=== PATIENT | male | born 1950 | race Caucasian/White ===

== ENCOUNTER 2019-08-13 09:56 | Outpatient (CLI) | payer MEDICARE, SELFPAY ==
--- NOTE | 2019-08-20 12:10 | WPDHOLTEREM ---
Holter/Event Monitor Holter/Event Monitor Date of procedure: 08/13/19 Procedure Type: 48 hour holter monitor Indications: PAF Conclusion: 1. 48 hour holter monitor on 08/13/19. 2. Underlying rhythm is atrial fibrillation. HR range 34-164 bpm; average HR 90 bpm. 3. No orther supraventricular arrhythmias. 4. There are 6 premature ventricular complexes. No ventricular tachycardia. 5. The longest pause is 2.4 seconds at 00:43. 6. No symptoms available for correlation.
== END 2019-08-13 09:57 | disposition home or self-care (01) ==
PROVIDERS: PCP Family Medicine; Visit Provider Internal Medicine Cardiovascular Disease
DX: I48.0 Paroxysmal atrial fibrillation (principal)
CPT/HCPCS: 93225; 93226

== ENCOUNTER 2019-09-25 12:58 | Outpatient (CLI) | payer MEDICARE, SELFPAY ==
--- NOTE | 2019-09-25 13:17 | ECHO_ITS ---
Patient Info Name: Marlo Bettencourt Age: 69 years : 1950 Gender: Male Ht: 73 in Wt: 255 lbs BSA: 2.48 m2 HR: 84 bpm BP: 129 / 75 mmHg Heart Rhythm: Atrial Fibrillation Technical Quality: Good Exam Date: 09/25/2019 1:27 PM Exam Location: [facility] Patient Status: Outpatient Admit Date: 09/25/2019 Staff Ordering Physician: Ho Thompson DO Resident Assistant Cna: Juve Christensen RDCS, RT Attending Provider: Ho Thompson DO Referring Physician: Jay VAZ; Exam Type: CA echo dop color flow w con Study Info Indications I48.1 - Persistent atrial fibrillation Complete two-dimensional, color flow and Doppler transthoracic echocardiogram is performed with contrast to opacify the left ventricle and to improve the deliniation of the left ventricle endocardial borders. Summary 1. Left ventricular chamber dimension is mildly enlarged. 2. Definity contrast administered improved wall motion interpretation. 3. Left ventricular systolic function is normal, estimated at 60-65%. 4. There is mildly increased left ventricular wall thickness. 5. The left ventricular diastolic function is normal. 6. E/e' 7 is not elevated. 7. Atrial fibrillation. 8. Left atrial chamber dimension is moderately enlarged. 9. Right atrial chamber dimension is moderately enlarged. 10. No pulmonary hypertension, estimated pulmonary arterial systolic pressure is 26 mmHg. Left Ventricle E/e' 7 is not elevated. Definity contrast administered improved wall motion interpretation. Atrial fibrillation. Left ventricular chamber dimension is mildly enlarged. Left ventricular systolic function is normal, estimated at 60-65%. There is mildly increased left ventricular wall thickness. The left ventricular diastolic function is normal. Right Ventricle Right ventricular chamber dimension is normal. Right ventricular systolic function is normal. Left Atria Left atrial chamber dimension is moderately enlarged. Right Atria Right atrial chamber dimension is moderately enlarged. Aortic Valve The aortic valve is trileaflet. There is no aortic valve stenosis. There is no aortic valve regurgitation. Pulmonic Valve There is no pulmonic regurgitation. Mitral Valve There is no mitral valve stenosis. There is no mitral valve regurgitation. Tricuspid Valve There is no tricuspid valve regurgitation. No pulmonary hypertension, estimated pulmonary arterial systolic pressure is 26 mmHg. Pericardium/Pleural There is no pericardial effusion. Inferior Vena Cava Normal inferior vena cava with >50% collapse upon inspiration consistent with normal right atrial pressure, 5 mmHg. Aorta The aortic root size at the sinus of Valsalva is normal. Left Ventricular Outflow Tract Name Value Normal LVOT 2D LVOT Diameter 2.26 cm LVOT Doppler LVOT Peak Velocity 94.05 cm/s LVOT Peak Gradient 4 mmHg LVOT Mean Gradient 2 mmHg LVOT VTI 16.49 cm LVOT VTI/AV VTI Ratio 0.68 LVOT Stroke Volume 66.20 ml
== END 2019-09-25 12:59 | disposition home or self-care (01) ==
LOC: CHSIMG 13:00
PROVIDERS: PCP Family Medicine; Visit Provider Internal Medicine Cardiovascular Disease
DX: I48.0 Paroxysmal atrial fibrillation (principal)
CPT/HCPCS: C8929

== ENCOUNTER 2019-09-29 09:11 | Inpatient (IN) | payer MEDICARE, SELFPAY ==
[2019-09-29] VITALS (14 sets, daily range): BP systolic 121–145; BP diastolic 83–90; PULSE 61–92; RESP 14–20; TEMP 36.2–36.6; O2SAT 97–100
--- NOTE | 2019-09-29 09:44 | ADMGEN ---
This patient, Marlo Bettencourt, was admitted to IMU Room [id number]. Patient/family oriented to hospital policies and general routines including ID bracelet, bed and alarms, visiting hours, pain management, procedures, bathroom and other care routines, personal items, smoking policy, room service/diet, and visiting hours. Valuables list has been completed. Information on how to activate the Rapid Response Team has been discussed. Patient/Family are encouraged to report perceived risks to care and to ask questions if they do not understand what they are told or what they should do.
--- NOTE | 2019-09-29 10:28 | ECG_ITS ---
Measurements Intervals [place] Rate: 69 P: CA: 0 QRS: 25 QRSD: 113 T: 57 QT: 389 QTc: 419 Interpretive Statements ATRIAL FIBRILLATION INTRAVENTRICULAR CONDUCTION DELAY ABNORMAL ECG Electronically Signed On 09-29-2019 13:02:27 CDT by Ho Thompson D.O.
[2019-09-29] MEDS: SOTALOL HCL 80 MG TABLET PO ×2 (11:20→19:52)
--- NOTE | 2019-09-29 12:15 | PM.IMHP ---
H&P: HPI History of Present Illness Chief complaint: A FIB Narrative: Marlo Bettencourt is a 69 year old male 69 yr old man presents for direct admission for Sotalol loading for atrial fibrillation. He has a history of PAF, dyslipidemia, hypertension, DANAE on CPAP, obesity. Reports he can walk 1 mile without any problems. He feels occasionally palpitations but does not bother him. Denies chest pain, sob, orthopnea, PND, edema. CARDIOVASCULAR PROCEDURES ELECTROPHYSIOLOGY: 09/25/19 Echo: . Left ventricular chamber dimension is mildly enlarged. Left ventricular systolic function is normal, estimated at 60-65%.There is mildly increased left ventricular wall thickness.The left ventricular diastolic function is normal.E/e' 7 is not elevated.Atrial fibrillation.Left atrial chamber dimension is moderately enlarged.Right atrial chamber dimension is moderately enlarged.No pulmonary hypertension, estimated pulmonary arterial systolic pressure is 26 mmHg. 08/13/19 Holter: Atrial fibrillation, HR range 34-164 bpm; average HR 90 bpm; 6 PAC's; longest pause 2.4 seconds at 00:43. EVR (30 day event monitor: SInus rhythm, HR range 50-140 bpm; average 72 bpm; 1% PAC's, <1% PVC's.) - 11/17/2018 EKG (Sinus rhythm) - 03/07/2016 Review of Systems Review of Systems: All systems reviewed & are unremarkable except as noted in HPI and below Constitutional: Constitutional: Reports as per HPI Cardiovascular: Cardiovascular: Reports as per HPI, Denies chest pain, Denies leg edema and Denies lightheadedness Respiratory: Respiratory: Reports as per HPI and Denies dyspnea Gastrointestinal: Gastrointestinal: Reports as per HPI and Denies abdominal pain Genitourinary: Genitourinary: Reports as per HPI Musculoskeletal: Musculoskeletal: Reports as per HPI Neurologic: Reports as per HPI, Denies Abnormal speech present and Denies confusion [facility] Past Medical History Medical History (Updated 07/03/19 @ 09:49 by Ho Thompson DO) Afib Arthritis FEET AND KNEES Dyslipidemia HTN (hypertension) Hypercholesterolemia Obesity DANAE on CPAP Surgical History Surgical History (Updated 06/23/19 @ 10:27 by Anita Morelos CMA) History of knee replacement procedure of left knee Family History Family History (Updated 09/29/19 @ 09:43 by Eleazar Ruiz RN) Mother Hypertension Alzheimer disease Father Hypertension Alzheimer disease Other Cerebrovascular accident Family history of arthritis Family history of lung cancer Social History Social History (Updated 09/29/19 @ 09:43 by Eleazar Ruiz RN) Smoking status: Never smoker Smoking end date: 03/19/11 Alcohol intake: current Drinks per week: 3 Alcohol use details: social drinker Substance use: never Living arrangements: with family Occupation/Education: retired Gender identity (if verbalized by the patient): Male Sexual Orientation (if Verbalized by the Patient): Straight or Heterosexual Spiritual care concerns: No Agree to blood products: Yes Meds Home Medications and Allergies Home Medications Medication Instructions Recorded Confirmed Type atorvastatin 20 mg PO HS 03/27/19 09/29/19 History fluticasone propionate [Flonase 1 spray INTRANASAL DAILY PRN 03/27/19 09/29/19 History Allergy Relief] hydrochlorothiazide 12.5 mg PO QAM 03/27/19 09/29/19 History metoprolol tartrate 50 mg tablet 50 mg PO Q12H #60 tablet 08/04/19 09/29/19 Rx apixaban 5 mg tablet 5 mg PO BID #60 tablet 08/20/19 09/29/19 Rx Allergies Allergy/AdvReac Type Severity Reaction Status Date / Time No Known Allergies Allergy Verified 09/03/19 11:00 Vital Signs Vital Signs - 24 hr 09/29/19 09:58 09/29/19 10:00 09/29/19 11:20 Temperature 97.2 F L Pulse Rate 78 70 66 Respiratory Rate 16 Blood Pressure 121/83 Pulse Oximetry 100 Exam Const: General: comfortable and no acute distress Neck: Neck: no JVD Carotids: no bruits Resp: Auscultation: clear
[2019-09-29 12:25] LABS: Hematocrit 45.5 % (42.0-52.0); Hemoglobin 14.9 g/dL (14.0-18.0); Mean Corpuscular HGB Conc 32.7 g/dl (32-36); Mean Corpuscular Hemoglobin 30.2 pg (26-34); Mean Corpuscular Volume 92.3 fl (80-100); Mean Platelet Volume 9.4 fl (7.4-10.4); Platelet Count Result 193 k/mm3 (150-375); Red Blood Count 4.93 M/mm3 (4.6-6.20); Red Cell Distribution Width 13.2 % (11.5-14.5); White Blood Count 8.7 K/mm3 (4.5-10.0)
[2019-09-29 12:41] LABS: Alanine Aminotransferase 24 U/L (4-50); Albumin Level 4.7 g/dL (3.5-5.1); Alkaline Phosphatase 76 U/L (38-126); Aspartate Amino Transferase 24 U/L (17-59); Bilirubin,Total 0.5 mg/dL (0.2-1.3); Blood Urea Nitrogen 22 mg/dL (9-20); Calcium 8.9 mg/dL (8.4-10.2); Carbon Dioxide 25 mmol/L (22-30); Chloride 107 mmol/L (98-107); Estimated Glomerular Filt Rate > 60; Glucose 95 mg/dL (75-110); Magnesium 2.2 mg/dL (1.6-2.3); Potassium 4.1 mmol/L (3.4-5.0); Sodium 140 mmol/L (137-145)
[2019-09-29 13:58] LABS: Thyroid Stimulating Hormone Reflex 0.305 uIU/mL (0.465-4.68)
[2019-09-29 16:09] LABS: Free T4 Free Thyroxine Reflex 1.06 ng/dL (0.78-2.19)
[2019-09-29] MEDS: APIXABAN 5 MG TABLET PO (16:38)
[2019-09-29 17:00] LABS: Total Triiodothyronine (T3) 1.13 NG/ML (0.97-1.69)
[2019-09-29] MEDS: ATORVASTATIN 20 MG TABLET PO (19:53)
[2019-09-30] VITALS (18 sets, daily range): BP systolic 111–134; BP diastolic 61–99; PULSE 55–96; RESP 18–20; TEMP 36.6–36.8; O2SAT 96–100; BMI 38.7
--- NOTE | 2019-09-30 07:00 | ECG_ITS ---
Measurements Intervals [place] Rate: 66 P: [place]: 0 QRS: 28 QRSD: 108 T: 66 QT: 416 QTc: 436 Interpretive Statements ATRIAL FIBRILLATION ABNORMAL ECG Electronically Signed On 09-30-2019 9:21:50 CDT by Ho Thompson D.O.
[2019-09-30] MEDS: APIXABAN 5 MG TABLET PO ×2 (07:45→17:43)
[2019-09-30] MEDS: hydroCHLOROthiazide 12.5 MG CAPSULE PO (07:45)
[2019-09-30] MEDS: SOTALOL HCL 80 MG TABLET PO ×2 (07:45→20:22)
--- NOTE | 2019-09-30 08:07 | PM.PNCARD ---
Progress Note: A&P Assessment and Plan (1) DANAE on CPAP: Code(s): G47.33 - Obstructive sleep apnea (adult) (pediatric); Z99.89 - Dependence on other enabling machines and devices Status: Acute (2) PAF (paroxysmal atrial fibrillation): Code(s): I48.0 - Paroxysmal atrial fibrillation Status: Acute Assessment and Plan: Continue Sotalol loading 80 mg BID. Check EKG to check QT interval. If he is still in atrial fib tomorrow, plan for PEARL/DC cardioversion. (3) HTN (hypertension): Code(s): I10 - Essential (primary) hypertension Status: Acute Assessment and Plan: Stable. (4) Hypercholesterolemia: Code(s): E78.00 - Pure hypercholesterolemia, unspecified Status: Acute Assessment and Plan: Check lipid panel in AM. (5) Obesity: Code(s): E66.9 - Obesity, unspecified Status: Acute Subjective Date/time seen: 09/30/19 08:07 Denies chest pain, sob, palpitations. Exam Const: General: comfortable and no acute distress Neck: Neck: no JVD Carotids: no bruits Resp: Auscultation: clear to auscultation bilaterally, no crackles, no rales, no rhonchi and no wheezes Cardio: Rate: regular rate Rhythm: abnormal rhythm Heart sounds: no murmurs GI: Inspection: non-distended Neuro: Speech: normal speech Extrem: Right lower extremity: no edema Left lower extremity: no edema Objective Data Vital Signs Vital Signs: Vital Signs - 24 hr 09/29/19 09:58 09/29/19 10:00 09/29/19 11:20 Temperature 97.2 F L Pulse Rate 78 70 66 Respiratory Rate 16 Blood Pressure 121/83 Pulse Oximetry 100 09/29/19 12:00 09/29/19 14:00 09/29/19 15:44 Temperature 97.1 F L Pulse Rate 65 74 92 Respiratory Rate 16 16 Blood Pressure 130/87 Pulse Oximetry 100 100 09/29/19 16:00 09/29/19 18:00 09/29/19 19:50 Temperature 97.1 F L 97.8 F Pulse Rate 70 70 80 Respiratory Rate 14 20 Blood Pressure 139/90 145/90 H Pulse Oximetry 100 97 09/29/19 19:52 09/29/19 20:00 09/29/19 22:00 Temperature Pulse Rate 74 83 62 Respiratory Rate 20 Blood Pressure Pulse Oximetry 97 09/29/19 22:18 09/29/19 23:38 09/30/19 00:00 Temperature 97.8 F Pulse Rate 64 73 70 Respiratory Rate 20 20 Blood Pressure 116/76 Pulse Oximetry 97 97 96 09/30/19 02:00 09/30/19 04:00 09/30/19 05:50 Temperature 97.8 F Pulse Rate 68 66 68 Respiratory Rate 20 Blood Pressure 111/61 Pulse Oximetry 99 09/30/19 07:40 09/30/19 07:45 Temperature 98.3 F Pulse Rate 70 83 Respiratory Rate 20 Blood Pressure 117/94 H Pulse Oximetry 98 Intake/Output Intake/Output: Intake & Output 09/27/19 09/28/19 09/29/19 09/30/19 23:59 23:59 23:59 23:59 Intake Total 1290 300 Output Total 200 Balance 1290 100 Meds/Results Medications: Active Medications Generic Name Dose Route Start Last Admin Trade Name Freq PRN Reason Stop Dose Admin Apixaban 5 mg 09/29/19 17:00 09/30/19 07:45 Eliquis PO 5 mg BID FABIOLA Administration Atorvastatin Calcium 20 mg 09/29/19 21:00 09/29/19 19:53 Lipitor PO 20 mg HS FABIOLA Administration Fluticasone Propionate 1 spray 09/29/19 10:27 Flonase 0.05% Nasal [place] NASAL DAILY PRN Congestion Hydrochlorothiazide 12.5 mg 09/30/19 09:00 09/30/19 07:45 Hydrochlorothiazide PO 12.5 mg QAM FABIOLA Administration Sotalol HCl 80 mg 09/29/19 10:30 09/30/19 07:45 Betapace PO 80 mg Q12HR FABIOLA Administration Labs Labs: Laboratory Results - last 24 hr 09/29/19 09/29/19 09/29/19 12:11 12:11 12:11 WBC 8.7 RBC 4.93 Hgb 14.9 Hct 45.5 MCV 92.3 MCH 30.2 MCHC 32.7 RDW 13.2 Plt Count 193 MPV 9.4 Sodium 140 Potassium 4.1 Chloride 107 Carbon Dioxide 25 BUN 22 H Creatinine 0.80 Estim Creat Clear Calc Not Reportable Estimated GFR > 60 Glucose 95 Calcium 8.9 Magnesium 2.2 Total Bilirubin 0.
[2019-09-30] MEDS: ATORVASTATIN 20 MG TABLET PO (20:22)
--- NOTE | 2019-09-30 23:20 | ECG_ITS ---
Measurements Intervals [place] Rate: 80 P: [place]: 0 QRS: 33 QRSD: 106 T: 52 QT: 412 QTc: 477 Interpretive Statements ATRIAL FIBRILLATION LOW QRS VOLTAGE IN PRECORDIAL LEADS ABNORMAL ECG Electronically Signed On 10-01-2019 6:45:31 CDT by Ho Thompson D.O.
[2019-10-01] VITALS (14 sets, daily range): BP systolic 105–152; BP diastolic 77–106; PULSE 49–78; RESP 14–19; TEMP 36.3–36.7; O2SAT 95–100
--- NOTE | 2019-10-01 | ECHO_ITS ---
Patient Info Name: Marlo Bettencourt Age: 69 years : 1950 Gender: Male Ht: 73 in Wt: 225 lbs BSA: 2.31 m2 HR: 96 bpm BP: 125 / 95 mmHg Technical Quality: Good Exam Date: 10/01/2019 10:15 AM Exam Location: [facility] Exam Room: [facility] Patient Status: Inpatient Admit Date: 09/29/2019 Staff Ordering Physician: Ho Thompson DO Section Hand: Lynn Jose RDCS Attending Provider: Ho Thompson DO Referring Physician: Jay VAZ; Exam Type: CA echo transesophageal Study Info Indications - afib pre cardioversion Complete two-dimensional, color flow and Doppler transesophageal study is performed. Procedure Details Risks/benefits/alternative treatment discussed with patient and he gave informed consent. Cetacaine spray given x 1. PEARL probe advanced and he swallowed probe without incident. Multiple images obtain. Agitated saline given x 1. PEARL probe withdrawn and no bleed noted on PEARL probe tip. He tolerated procedure well. No complications. Summary 1. Left ventricular chamber dimension is normal. 2. There is mildly increased left ventricular wall thickness. 3. Left ventricular systolic function is normal with an ejection fraction at 60-65%. 4. The left ventricular diastolic function is indeterminate. 5. Spontaneous contrast noted in left atrium. 6. Left atrial chamber dimension is moderately enlarged. 7. Right atrial chamber dimension is mildly enlarged. 8. Small interatrial shunt by color doppler noted from left atrium to right atrium suggestive of small atrial septal defect. 9. Suspected atrial septal defect visualized by 2D, color flow and agitated saline imaging. 10. There is mild mitral valve regurgitation. Left Ventricle Left ventricular systolic function is normal with an ejection fraction at 60-65%. Left ventricular chamber dimension is normal. There is mildly increased left ventricular wall thickness. The left ventricular diastolic function is indeterminate. Right Ventricle Right ventricular chamber dimension is normal. Right ventricular systolic function is normal. Left Atria Spontaneous contrast noted in left atrium. Left atrial chamber dimension is moderately enlarged. Right Atria Right atrial chamber dimension is mildly enlarged. Atrial Septum Small interatrial shunt by color doppler noted from left atrium to right atrium suggestive of small atrial septal defect. Suspected atrial septal defect visualized by 2D, color flow and agitated saline imaging. Atrial Appendage There is no thrombus visualized in the left atrial appendage. Aortic Valve The aortic valve is trileaflet. There is no aortic valve stenosis. There is no aortic valve regurgitation. Pulmonic Valve There is no pulmonic regurgitation. Mitral Valve There is no mitral valve stenosis. There is mild mitral valve regurgitation. Tricuspid Valve There is no tricuspid valve regurgitation. Pericardium/Pleural There is no pericardial effusion. Inferior Vena Cava Not well visualized inferior vena cava. Aorta The aortic root size at the sinus of Valsalva is normal. Report Signatures
--- NOTE | 2019-10-01 07:56 | PM.PNCARD ---
Progress Note: A&P Assessment and Plan (1) DANAE on CPAP: Code(s): G47.33 - Obstructive sleep apnea (adult) (pediatric); Z99.89 - Dependence on other enabling machines and devices Status: Acute (2) PAF (paroxysmal atrial fibrillation): Code(s): I48.0 - Paroxysmal atrial fibrillation Status: Acute Assessment and Plan: Continue Sotalol loading 80 mg BID. Check EKG to check QT interval. Keep NPO for PEARL/DC cardioversion this morning. (3) HTN (hypertension): Code(s): I10 - Essential (primary) hypertension Status: Acute Assessment and Plan: Stable. (4) Hypercholesterolemia: Code(s): E78.00 - Pure hypercholesterolemia, unspecified Status: Acute Assessment and Plan: Check lipid panel in AM. (5) Obesity: Code(s): E66.9 - Obesity, unspecified Status: Acute Subjective Date/time seen: 10/01/19 07:56 No complaints. Discussed PEARL/Cardioversion with patient and he is agreeable for procedure. Exam Const: General: comfortable and no acute distress Neck: Neck: no JVD Carotids: no bruits Resp: Auscultation: clear to auscultation bilaterally, no crackles, no rales, no rhonchi and no wheezes Cardio: Rate: regular rate Rhythm: abnormal rhythm Heart sounds: no murmurs GI: Inspection: non-distended Neuro: Speech: normal speech Extrem: Right lower extremity: no edema Left lower extremity: no edema Objective Data Vital Signs Vital Signs: Vital Signs - 24 hr 09/30/19 08:00 09/30/19 10:00 09/30/19 11:31 Temperature 98.2 F Pulse Rate 85 96 55 L Respiratory Rate 20 20 Blood Pressure 134/93 H Pulse Oximetry 98 100 09/30/19 14:00 09/30/19 15:56 09/30/19 16:00 Temperature 97.9 F Pulse Rate 88 72 72 Respiratory Rate 20 20 Blood Pressure 123/99 H Pulse Oximetry 100 99 09/30/19 18:00 09/30/19 19:48 09/30/19 20:00 Temperature 98.1 F Pulse Rate 94 64 71 Respiratory Rate 18 18 Blood Pressure 120/70 Pulse Oximetry 98 98 09/30/19 20:22 09/30/19 22:00 09/30/19 23:19 Temperature 98.0 F Pulse Rate 76 86 68 Respiratory Rate 20 Blood Pressure 133/91 H Pulse Oximetry 97 10/01/19 02:00 10/01/19 03:44 10/01/19 04:00 Temperature 98.0 F Pulse Rate 66 66 78 Respiratory Rate 18 18 Blood Pressure 152/82 H Pulse Oximetry 98 99 10/01/19 05:43 Temperature Pulse Rate 68 Respiratory Rate Blood Pressure Pulse Oximetry Intake/Output Intake/Output: Intake & Output 09/28/19 09/29/19 09/30/19 10/01/19 23:59 23:59 23:59 23:59 Intake Total 1290 1420 300 Output Total 200 850 Balance 1290 1220 -550 Meds/Results Medications: Active Medications Generic Name Dose Route Start Last Admin Trade Name Freq PRN Reason Stop Dose Admin Apixaban 5 mg 09/29/19 17:00 09/30/19 17:43 Eliquis PO 5 mg BID FABIOLA Administration Atorvastatin Calcium 20 mg 09/29/19 21:00 09/30/19 20:22 Lipitor PO 20 mg HS FABIOLA Administration Fentanyl Citrate 100 mcg 09/30/19 12:26 Sublimaze IV PUSH ONCE PRN Cardioversion/PEARL Fluticasone Propionate 1 spray 09/29/19 10:27 Flonase 0.05% Nasal [place] NASAL DAILY PRN Congestion Hydrochlorothiazide 12.5 mg 09/30/19 09:00 09/30/19 07:45 Hydrochlorothiazide PO 12.5 mg QAM FABIOLA Administration Sodium Chloride 1,000 mls @ 30 mls/hr 09/30/19 12:30 Normal Saline Iv IV CONT .Q24H FABIOLA Midazolam HCl 2 mg 10/01/19 09:00 Versed IV PUSH 10/01/19 09:16 Q5M PRN Cardioversion/PEARL Sotalol HCl 80 mg 09/29/19 10:30 09/30/19 20:22 Betapace PO 80 mg Q12HR FABIOLA Administration
[2019-10-01 08:07] LABS: Cholesterol 110 mg/dL (0-200); HDL Direct 30 mg/dL; Triglycerides 88 mg/dL (<150)
[2019-10-01 08:18] LABS: LDL Cholesterol Direct 61 mg/dL
[2019-10-01] MEDS: hydroCHLOROthiazide 12.5 MG CAPSULE PO (09:41)
[2019-10-01] MEDS: APIXABAN 5 MG TABLET PO (09:41)
[2019-10-01] MEDS: SOTALOL HCL 80 MG TABLET PO (09:41)
--- NOTE | 2019-10-01 10:50 | ECG_ITS ---
Measurements Intervals [place] Rate: 47 P: 51 [place]: 204 QRS: 28 QRSD: 105 T: 48 QT: 458 QTc: 408 Interpretive Statements SINUS BRADYCARDIA BORDERLINE AV CONDUCTION DELAY DELAYED PRECORDIAL R/S TRANSITION ABNORMAL ECG Electronically Signed On 10-01-2019 14:32:00 CDT by Ho Thompson D.O.
--- NOTE | 2019-10-01 11:58 | PC.NURSE ---
PATIENT LEFT FLOOR TO ATTEND [facility] PROCEDURE AT 0943 ON 10/01/2019
--- NOTE | 2019-10-01 11:59 | PC.NURSE ---
PATIENT RETURNED FROM [facility] AT THIS TIME. V/S ARE STABLE WITH PATIENT IN SINUS FRANCIA WITH A RATE OF 54 BPM. NO C/O PAIN OR DISCOMFORT AT THIS TIME. WILL CONTINUE TO MONITOR
--- NOTE | 2019-10-01 12:24 | P.PCNCVR_ITS ---
Cardioversion Cardioversion Date of procedure: 10/01/19 Pre-op diagnosis: Atrial fibrillation Post-op diagnosis: same Indications: Atrial fibrillation Description of procedure: Risks/benefits/ alternative treatment discussed with patient and he is agreeable for procedure. HR 70's bpm in atrial fibrillation, BP 130/80 mmHg. After PEARL done that showed no left atrial appendage thrombus, DC cardioversion proceeded. He had defibrillator pads to upper mid anterior wall and left lower anterior wall. Cardioversion with 200 J synchronized biphasic energy was successful. He tolerated procedure well. No complications. HR 45- 50's bpm and BP 120/70 mmHg. Sedation: Sedation with Fentanyl 50 mcg and Versed 4 mg IV. Conclusion: 1. Successful DC cardioversion from atrial fibrillation to Sinus rhythm.
--- NOTE | 2019-10-01 13:05 | PM.DS ---
DS: Admitting Diagnosis Admitting Diagnosis Admitting Diagnosis: Paroxysmal atrial fibrillation DS: Summary Time Spent with Patient Time attestation: 69 yr old man with PAF and hypertension and DANAE directly admitted for sotalol loading. On 3rd day he was still in atrial fib. PEARL/Cardioversion performed that restored sinus rhythm. He will be discharged on Sotalol 80 mg BID, Eliquis 5 mg BID, HCTZ 12.5 mg daily and Atorvaststatin 20 mg daily. His HR is 50-55 bpm post cardioversion. Dispo: home. Activity: As tolerated. F/U with me in 1-2 weeks. Total time spent providing and/or coordinating discharge services: DS: Data Data Completed and Pending Labs on day of discharge: Labs from last 24 hours 10/01/19 07:35 Triglycerides 88 Cholesterol 110 LDL Cholesterol Direct 61 HDL Direct 30 Discharge Plan Discharge Discharging Clinician: Ho Thompson Patient Disposition: Home, Self-Care Activity: as tolerated Diet: regular Patient Instructions: Antibiotic Form, Apixaban (By mouth) Stand Alone Forms: General Discharge Information Follow-up/Referrals: Ho Thompson DO [Physician] - 1 Week Discharge Medications: New sotalol 80 mg Tablet 80 mg PO Q12HR Qty: 0 RF: 5 Continued atorvastatin 20 mg tablet 20 mg PO HS RF: 0 fluticasone propionate [Flonase Allergy Relief] 50 mcg/actuation spray,suspension 1 spray INTRANASAL DAILY PRN (Reason: Congestion) RF: 0 hydrochlorothiazide 12.5 mg tablet 12.5 mg PO QAM RF: 0 Eliquis 5 mg tablet 5 mg PO BID Qty: 60 RF: 5 Discontinued metoprolol tartrate 50 mg tablet 50 mg PO Q12H Qty: 60 RF: 5 Date of admission: 09/29/19 09:11 Primary Care Provider: Alfred Clark Admitting Provider: Ho Thompson Attending physician on admission: Ho Thompson
== END 2019-10-01 14:40 | disposition home or self-care (01) | DRG 310 ==
PROVIDERS: Admitting Provider Internal Medicine Cardiovascular Disease; PCP Family Medicine; Visit Provider Internal Medicine Cardiovascular Disease
PROC: 5A2204Z Restoration of Cardiac Rhythm, Single (ICD-10-PCS; CPT 93312; principal; 2019-10-01 10:00)
PROC: 5A2204Z Restoration of Cardiac Rhythm, Single (ICD-10-PCS; 2019-10-01 10:00)
DX: I48.0 Paroxysmal atrial fibrillation (principal); Z51.81 Encounter for therapeutic drug level monitoring; G47.33 Obstructive sleep apnea (adult) (pediatric); I10 Essential (primary) hypertension; E78.5 Hyperlipidemia, unspecified; E66.9 Obesity, unspecified; Z68.38 Body mass index [BMI] 38.0-38.9, adult; M17.0 Bilateral primary osteoarthritis of knee; M19.072 Primary osteoarthritis, left ankle and foot; M19.071 Primary osteoarthritis, right ankle and foot; Z96.652 Presence of left artificial knee joint
CPT/HCPCS: 36415; 80053; 80061; 83735; 84439; 84443; 84480; 85027; 92960; 93005; 93312; 93320; 93325; A9270; J2250; J3010; J7040

== ENCOUNTER 2021-10-10 09:52 | Outpatient (CLI) | payer MEDICARE, SELFPAY ==
--- NOTE | ~2021-10-10 | XR_ITS ---
EXAMINATION: XR chest 2V 10/10/2021 10:25 INDICATION: Chest mass. Localized swelling. PROCEDURE: 2 view chest COMPARISON: No prior studies for comparison. FINDINGS: The lungs are clear. The cardiomediastinal silhouette is within normal limits. There are no pleural effusions. There is no pneumothorax suspected. Mild thoracic spondylosis. IMPRESSION: 1: NO ACUTE CARDIOPULMONARY DISEASE. Reviewed, dictated and finalized at location A.
--- NOTE | ~2021-10-10 | XR_ITS ---
EXAMINATION: XR sternum min 2V INDICATION: Localized mass and swelling at the xiphoid TECHNIQUE: Three views of the sternum are obtained. COMPARISON: None available FINDINGS: No definite mass of the sternum is identified. Bone alignment is normal. There is no fractu re. The soft tissues appear unremarkable. IMPRESSION: 1. No definite mass of the sternum identified. If there is high clinical concern for mass, consider f urther evaluation with CT. Reviewed, dictated and finalized at location B. IMPRESSION: 1. No definite mass of the sternum identified. If there is high clinical concer n for mass, consider further evaluation with CT.
== END 2021-10-10 09:53 | disposition home or self-care (01) ==
LOC: CHSIMG 09:55
PROVIDERS: PCP Family Medicine; Visit Provider Family Medicine
DX: R22.2 Localized swelling, mass and lump, trunk (principal)
CPT/HCPCS: 71046; 71120

== ENCOUNTER 2021-10-14 08:52 | Outpatient (CLI) | payer MEDICARE, SELFPAY ==
[2021-10-14 09:10] LABS: Estimated Glomerular Filt Rate > 60
== END 2021-10-14 08:53 | disposition home or self-care (01) ==
LOC: CHSLAB 08:55
PROVIDERS: PCP Family Medicine; Visit Provider Family Medicine
DX: Z01.89 Encounter for other specified special examinations (principal)
CPT/HCPCS: 99199

== ENCOUNTER 2021-10-17 08:45 | Outpatient (CLI) | payer MEDICARE, SELFPAY ==
--- NOTE | ~2021-10-17 | CT_ITS ---
EXAMINATION:CT diagnostic chest w con DATE: 10/17/2021 09:30 INDICATION: Lump in the area of the xiphoid process of the sternum. TECHNIQUE: Computed tomography (CT) of the chest was performed with 75 mL Omnipaque 350 intravenous c ontrast. Automated exposure control and iterative reconstruction technique were employed. The dose-le ngth product (DLP) was 591.80 mGy-cm. COMPARISON: Chest 2 views 10/10/2021 FINDINGS: There is mild emphysema. There is mild atelectasis bilaterally. No pleural effusion. There is left atrial enlargement of the heart. There are coronary artery calcifications. No pericardial eff usion. There is a 9 mm cyst in the liver. There is moderate thoracic spondylosis. The inferior tip of the xiphoid process of the sternum is directed anteriorly, which is a normal variant. IMPRESSION: 1. Normal variant of the xiphoid process of the sternum correlating with the patient's palpable area of concern. Reviewed, dictated and finalized at location A. IMPRESSION: 1. Normal variant of the xiphoid process of the sternum correlating with the pa tient's palpable area of concern.
== END 2021-10-17 08:46 | disposition home or self-care (01) ==
LOC: CHSIMG 08:46
PROVIDERS: PCP Family Medicine; Visit Provider Family Medicine
DX: R22.2 Localized swelling, mass and lump, trunk (principal)
CPT/HCPCS: 71260; Q9967

== ENCOUNTER 2021-10-19 09:22 | Outpatient (CLI) | payer MEDICARE, SELFPAY | END 2021-10-19 09:23 | disposition home or self-care (01) | LOC: CHSCARD 09:25 | PROVIDERS: PCP Family Medicine; Visit Provider Family Medicine | DX: J43.9 Emphysema, unspecified (principal) | CPT/HCPCS: 94060; 94726; 94729 ==

== ENCOUNTER 2021-12-09 08:53 | Outpatient (CLI) | payer MEDICARE, SELFPAY ==
[2021-12-09 09:07] LABS: Basophils Absolute Auto 0.09 K/mm3 (0.00-0.10); Basophils Percent Auto 1.5 % (0.0-1.0); Eosinophils Percent Auto 3.3 % (1.0-6.0); Hematocrit 40.1 % (37.0-46.0); Hemoglobin 13.4 g/dL (12.4-15.3); Immature Granulocyte Absolute 0.02 K/mm3 (0.00-0.00); Immature Granulocyte Percent A 0.3 % (0.0-0.0); Lymphocytes Absolute Auto 1.54 K/mm3 (1.10-4.50); Lymphocytes Percent Auto 25.7 % (18.0-42.0); Mean Corpuscular HGB Conc 33.4 g/dL (32.0-36.0); Mean Corpuscular Hemoglobin 30.2 pg (27.0-31.0); Mean Corpuscular Volume 90.3 fL (78.0-102.0); Mean Platelet Volume 8.9 fl (8.7-11.0); Monocytes Absolute Auto 0.59 K/mm3 (0.10-0.90); Monocytes Percent Auto 9.8 % (2.0-11.0); Neutrophils Absolute Auto 3.6 K/mm3 (1.7-7.2); Neutrophils Percent Auto 59.4 % (50.0-70.0); Platelet Count Result 195 K/mm3 (150-420); Red Blood Count 4.44 M/mm3 (4.70-6.10); Red Cell Distribution Width 12.8 % (11.6-14.4)
[2021-12-09 09:16] LABS: Creatinine Urine 89.28 mg/dL (40-278); MALB Creatinine Ratio 14.5 mg/g (0-30); Microalbumin Urine Random < 13.0 mg/L
[2021-12-09 09:52] LABS: Alanine Aminotransferase 24 U/L (16-63); Alkaline Phosphatase 69 U/L (46-116); Anion Gap 7 mmol/L (8-16); Aspartate Amino Transferase 18 U/L (15-37); Bilirubin,Total 0.5 mg/dL (0.00-1.00); Blood Urea Nitrogen 13 mg/dL (7-18); Calcium 8.6 mg/dL (8.5-10.1); Carbon Dioxide 29 mmol/L (21-32); Chloride 102 mmol/L (98-108); Cholesterol 108 mg/dL (0-200); Estimated Glomerular Filt Rate > 60; Glucose 97 mg/dL (70-99); HDL Direct 41 mg/dL (40-60); LDL Cholesterol Calculated 55 mg/dL (<130); Osmolality Calculated 286 mOsm/kg (285-295); Potassium 3.9 mmol/L (3.5-5.1); Sodium 138 mmol/L (136-145); Thyroid Stimulating Hormone 2.59 uIU/mL (0.36-3.74); Total Protein 6.6 g/dL (6.4-8.2); Triglycerides 59 mg/dL (0-150)
== END 2021-12-09 08:54 | disposition home or self-care (01) ==
LOC: CHSLAB 08:55
PROVIDERS: PCP Family Medicine; Visit Provider Family Medicine
DX: E78.2 Mixed hyperlipidemia (principal); I10 Essential (primary) hypertension
CPT/HCPCS: 36415; 80053; 80061; 82043; 84443; 85025

== ENCOUNTER 2022-05-22 09:54 | Outpatient (CLI) | payer MEDICARE, SELFPAY ==
--- NOTE | ~2022-05-22 | XR_ITS ---
XR_CERV2-3V_CR DATE: 05/22/2022 10:53 INDICATION: Paresthesia. Pain radiating to both arms for 3 weeks. TECHNIQUE: AP, open-mouth, lateral and swimmer views COMPARISON: None FINDINGS: C1 and C2 are normally aligned and the odontoid process is intact. There is multilevel degenerative disc disease, severe at C5-C6, moderately severe at C6-7 and mild at the remaining cervical interspaces. No fracture or dislocation or locked facet or prevertebral soft tissue swelling. There is uncovertebral joint spurring in the mid and lower cervical spine and degenerative change at the apophyseal joints. IMPRESSION: Cervical spondylosis; no fracture or dislocation or locked facet Reviewed, dictated and finalized at Location A. Reviewed, dictated and finalized at location B. VIOR INTERVENTIONIST
== END 2022-05-22 09:55 | disposition home or self-care (01) ==
PROVIDERS: PCP Family Medicine; Visit Provider Family Medicine
DX: R20.2 Paresthesia of skin (principal); M43.02 Spondylolysis, cervical region
CPT/HCPCS: 72040

== ENCOUNTER 2022-07-05 09:28 | Outpatient (CLI) | payer MEDICARE, SELFPAY ==
--- NOTE | 2022-07-05 11:00 | NEURO_ITS ---
Impression: # Complains of upper extremity discomfort. History of neck problem. # Evolving mild Carpal Tunnel Syndrome. # Bilateral ulnar neuropathy across the elbows. # Needle/EMG exam not requested. # Clinical correlation recommended; Higher involvement cannot be ruled out. Nerve Conduction Studies Anti Sensory Summary Table Stim Site NR Peak (ms) P-T Amp (?V) Site1 Site2 Delta-P (ms) Dist (cm) Irineo (m/s) Left Median Anti Sensory (2-3nd Digit) Wrist 3.6 26.4 Wrist 2-3nd Digit 3.6 14.0 39 Wrist 3.5 19.8 Wrist 2-3nd Digit 3.6 14.0 39 Right Median Anti Sensory (2-3nd Digit) Wrist 3.5 22.1 Wrist 2-3nd Digit 3.5 14.0 40 Wrist 3.4 19.2 Wrist 2-3nd Digit 3.5 14.0 40 Left Radial Anti Sensory (Base 1st Digit) Wrist 2.0 13.4 Wrist Base 1st Digit 2.0 0.0 Right Radial Anti Sensory (Base 1st Digit) Wrist 2.3 22.5 Wrist Base 1st Digit 2.3 0.0 Left Ulnar Anti Sensory (5th Digit) Wrist 2.4 21.5 Wrist 5th Digit 2.4 14.0 58 Right Ulnar Anti Sensory (5th Digit) Wrist 2.7 13.4 Wrist 5th Digit 2.7 14.0 52 Motor Summary Table Stim Site NR Onset (ms) O-P Amp (mV) Site1 Site2 Delta-0 (ms) Dist (cm) Irineo (m/s) Left Median Motor (Abd Poll Brev) Wrist 3.4 4.6 Elbow Wrist 5.3 34.0 64 Elbow 8.7 2.3 Right Median Motor (Abd Poll Brev) Wrist 3.4 2.0 Elbow Wrist 5.3 31.0 58 Elbow 8.7 2.1 Left Ulnar Motor (Abd Dig Minimi) Wrist 2.2 5.0 A Elbow Wrist 6.2 34.0 55 A Elbow 8.4 3.5 B Elbow Wrist 4.3 28.0 65 B Elbow 6.5 5.9 Right Ulnar Motor (Abd Dig Minimi) Wrist 2.7 6.4 A Elbow Wrist 6.2 33.0 53 A Elbow 8.9 5.5 B Elbow Wrist 3.9 24.0 62 B Elbow 6.6 5.7 F Wave Studies NR F-Lat (ms) L-R F-Lat (ms) Left Median (Mrkrs) (Abd Poll Brev) 29.30 0.29 Right Median (Mrkrs) (Abd Poll Brev) 29.59 0.29 Left Ulnar (Mrkrs) (Abd Dig Min) 29.40 0.91 Right Ulnar (Mrkrs) (Abd Dig Min) 30.31 0.91 MTDD
== END 2022-07-05 09:29 | disposition home or self-care (01) ==
LOC: ANHNEURO 09:30
PROVIDERS: PCP Family Medicine; Visit Provider Family Medicine
DX: G56.03 Carpal tunnel syndrome, bilateral upper limbs (principal); G56.23 Lesion of ulnar nerve, bilateral upper limbs
CPT/HCPCS: 95911

== ENCOUNTER 2022-07-20 10:01 | Outpatient (CLI) | payer MEDICARE, SELFPAY ==
--- NOTE | ~2022-07-20 | MR_ITS ---
MRI of the cervical spine Clinical History: Ulnar neuropathy Technique: Axial T2-weighted and gradient images, and sagittal T1-weighted, T2-weighted, and STIR ally ges were acquired. Findings: There is no fracture or subluxation of the cervical spine. Vertebral bodies maintain normal height and alignment. There is advanced degenerative disc narrowing at C5-C6. There is mild to moder ate degenerative disc narrowing at C4-C5, and C6-C7. No suspicious bone marrow signal abnormality see n. At C2-C3, there is no disc bulge or herniation. No spinal canal stenosis, cord compression, or neural foraminal narrowing. At C3-C4, there is disc osteophyte complex with mild effacement of thecal sac but no tere cord compr ession. Mild facet arthropathy, left worse than right, continues to bilateral neural foraminal narrow ing. At C4-C5, disc osteophyte complex and facet arthropathy, right worse than left, contribute to mild ce ntral canal stenosis, without tere cord compression. There is bilateral neural foraminal narrowing, right worse than left. At C5-C6, disc osteophyte complex and facet arthropathy are present. There is probable minimal centra l canal stenosis without tere cord compression. There is bilateral neural foraminal narrowing, left worse than right. At C6-C7, there is disc osteophyte complex, somewhat eccentric to the right paracentral region, witho ut tere spinal canal stenosis or cord compression. There is probable bilateral neural foraminal narr owing, right worse than left. No abnormal signal seen in the spinal cord. Paravertebral soft tissues are unremarkable. Impression: Moderate degenerative spondylosis, as detailed above. Reviewed, dictated and finalized at location M. Impression: Moderate degenerative spondylosis, as detailed above.
== END 2022-07-20 10:02 | disposition home or self-care (01) ==
PROVIDERS: PCP Family Medicine; Visit Provider Family Medicine
DX: G56.20 Lesion of ulnar nerve, unspecified upper limb (principal); M43.02 Spondylolysis, cervical region
CPT/HCPCS: 72141

== ENCOUNTER 2022-09-27 15:12 | Outpatient (RCR) | payer MEDICARE, SELFPAY ==
--- NOTE | 2022-09-27 16:24 | PTOPEVAL1 ---
Assessment and note entered by Yohana Dudley, PT Evaluation Information Assessment Status Evaluation Diagnosis C6-7 disc protrusion, R UE parathesias Subjective Information Marlo Bettencourt reports he started to have numbness and tingling in the right shoulder blade and wrist for unknown reasons about 6 months ago. He states it came on suddenly and did not go away. He has a history of intermittent pain on the right side of his neck as well. He has undergone MRI and nerve conduction testing and has been diagnosed with a C6-7 disc protrusion. He notes the symptoms come and go and do not currently prevent him from performing daily activities. He does note that driving and turning his head is when the symptoms occur most frequently. He describes the symptoms as annoying. Reported Pain Level Pain Score 0: Self Report Assessment PT Clinical Summary Marlo Bettencourt presents with numbness and tingling in the right upper extremity that has been present for 6 months intermittently. He also has a history of intermittent right sided neck pain for several years. He has difficulty with driving noting turning his head causes the numbness to occur. He objectively demonstrates impaired posture, decreased cervical AROM, decreased cervical strength, and positive special tests for right cervical nerve root impingement. He will benefit from skilled PT to address these limitations. Plan of Care Interventions Electrical Stimulation,Hot Pack/Cold Pack,Manual Therapy,Neuro Re-education,Patient/Caregiver Educati,Therapeutic Activities,Therapeutic Exercise PT Services Indicated Yes Treatment Frequency and 2 times a week for 12 visits Duration These treatments will address the objective and functional deficits as defined above. The patient will be advanced safely and appropriately in order for the patient to progress towards his/her prior level of function. Additional exercises will be introduced and as well as a comprehensive home exercise program upon discharge, if needed, ?to ensure carryover of functional gains achieved in the clinic. This treatment plan has been reviewed and agreement upon by the patient.
--- NOTE | 2022-09-27 16:24 | OPREHPOC ---
Outpatient Therapy Plan of Care This is a Multidisciplinary Plan of Care that may contain components documented by all disciplines (PT, OT, and ST.) PT Problem 1 PT Problem #1 Knowledge Deficit PT Goal 1 Goal The patient will be independent in a home exercise program for cervical stabilization and postural exercises to continue after discharge from formal PT. Target Visit 12 PT Problem 2 PT Problem #2 Pain PT Goal 1 Goal The patient will report a resolution of right UE parathesias by 75%. Target Visit 12 PT Problem 3 PT Problem #3 Impaired Range of Motion PT Goal 1 Goal The patient will improved cervical lateral flexion AROM to 25 degrees and rotation AROM to 70 degrees. Target Visit 12 PT Problem 4 PT Problem #4 Impaired Functional Mobil PT Goal 1 Goal The patient will report the ability to drive without an increase in R UE parathesias or neck pain.
--- NOTE | 2022-10-31 11:45 | PTOPEVAL1 ---
Assessment and note entered by Amaury Leong Evaluation Information Assessment Status Progress Diagnosis C6-7 disc protrusion, R u.e. parathesis Subjective Information Pt. reports that he is improved by 75%. He notes that he no longer as the numbness while driving. He still notes some pain with turning the head and describes pain in the area of the right upper trap. He reports that he would like to continue skilled PT in order to further decrease pain and improve ROM. Reported Pain Level Pain Score 1: Self Report Assessment PT Clinical Summary Pt. has attended a total of 10 treatment sessions. Pt. demonstrates improvements in subjective reports of pain, strength, cervical mobility and postural awareness. Continued skilled PT is indicated in order to address remaining pain and posutral awareness to maximize pt. functional mobility and comfort. Plan of Care Interventions Electrical Stimulation,Manual Therapy,Neuro Re- education,Therapeutic Activities,Therapeutic Exercise PT Services Indicated Yes Treatment Frequency and Continue with 2 remianing sessions on pt. POC Duration focused on addressing remaining pain, ROM deficits and postural awareness. These treatments will address the objective and functional deficits as defined above. The patient will be advanced safely and appropriately in order for the patient to progress towards his/her prior level of function. Additional exercises will be introduced and as well as a comprehensive home exercise program upon discharge, if needed, ?to ensure carryover of functional gains achieved in the clinic. This treatment plan has been reviewed and agreement upon by the patient.
--- NOTE | 2022-11-07 13:10 | OPREHPOC ---
Outpatient Therapy Plan of Care This is a Multidisciplinary Plan of Care that may contain components documented by all disciplines (PT, OT, and ST.) PT Problem 1 PT Problem #1 Knowledge Deficit PT Goal 1 Goal The patient will be independent in a home exercise program for cervical stabilization and postural exercises to continue after discharge from formal PT. Target Visit 12 Progress Met PT Problem 2 PT Problem #2 Pain PT Goal 1 Goal The patient will report a resolution of right UE parathesias by 75%. Target Visit 12 Progress Met PT Problem 3 PT Problem #3 Impaired Range of Motion PT Goal 1 Goal The patient will improved cervical lateral flexion AROM to 25 degrees and rotation AROM to 70 degrees. Target Visit 12 Progress Met PT Problem 4 PT Problem #4 Impaired Functional Mobil PT Goal 1 Goal The patient will report the ability to drive without an increase in R UE parathesias or neck pain. Progress Met
--- NOTE | 2022-11-07 13:10 | PTOPDC ---
Assessment and note entered by JT File, PT Evaluation Information Assessment Status Progress Diagnosis C6-7 disc protrusion, R u.e. parathesis Subjective Information patient reports he feels Good this date. he reports he has no new pain. he reports he always has a little pain when he gets up in the mornings. he reports he is compliant with his HEP daily at home. he reports the isometrics and the towel neck exercises seem to feel the best. Reported Pain Level Pain Score 0: Self Report Assessment PT Clinical Summary mr. norton presents to skilled PT services for her 12th skilled therapy visit today. he has met all goals for skilled PT as of this date. he will DC skilled PT today and continue with HEP independent at home. Plan of Care PT Services Indicated Yes
== END 2022-11-07 10:18 | disposition home or self-care (01) ==
LOC: CHSPT 15:12
PROVIDERS: PCP Family Medicine
DX: M47.812 Spondylosis without myelopathy or radiculopathy, cervical region (principal)
CPT/HCPCS: 97012; 97014; 97110; 97140; 97150; 97161; G0283

== ENCOUNTER 2025-01-16 08:53 | Outpatient (CLI) | payer MEDICARE, SELFPAY ==
--- OUTSIDE RECORDS SUMMARY | 2025-01-16 09:14 | XMS_ITS | Clinical Summary ---
Author Organization [facility] Address [address] [place] [address] Care Team Providers Care Delivery Clerk Name Role Phone Mahesh Og MD Unavailable Alfred Clark MD Primary Care Provider [phone] Source Comments [facility],non-owned Affiliates and Associated Physician Practices is amultiple site organization consisting of ambulatory clinics and hospital sitesin [place], [place], [place] and [place]. This disclosure is being madepursuant to the Care Everywhere program and may not contain all information available regarding this patient. Last updated 17.[facility] Allergies No known active allergies Medications * Be aware that medications may not be up to date on this document. Alwaysverify current medications with the patient. Radha Cross, (SAW PALMETTO PO) Take 750 mg by mouth once daily Active LYCOPENE PO Take 20 mg by mouth once daily Active Safflower Oil 1000 MG Take 2,000 mg by mouth once daily Active Multiple Vitamins-Mineral s (MENS MULTIVITAMIN PLUS PO) Take by mouth once daily Active lutein 10 MG tablet Take 1 (one) tablet by mouth once daily Active vitamin C (ASCORBIC ACID) 1000 MG tablet Take 1 (one) tablet by mouth once daily Active ALPHA LIPOIC ACID PO Take 1,200 mg by mouth once daily Active FOLIC ACID PO Take 1 tablet by mouth once daily Active atorvastatin (LIPITOR) 20 MG tablet Take 1 (one) tablet by mouth at bedtime 9 Active hydroCHLOROthiaz oh (MICROZIDE) 12.5 MG capsule Take 1 (one) capsule by mouth once daily 9 Active metoprolol succinate XL 24hr (TOPROL XL) 50 MG tablet Take 1 (one) tablet by mouth at bedtime 1 Active FISH OIL-KRILL OIL PO Take 1 tablet by mouth once daily Active Tart Chu 1200 MG CAPS Take 1,200 mg by mouth once daily Active Vitamin D3, cholecalciferol, 50 MCG (2000 UT) tablet Take 1 (one) tablet by mouth once daily Active Coconut Oil 1000 MG Take 2,000 mg by mouth once daily Active Resveratrol 100 MG capsule Take 100 mg by mouth once daily Active VITAMIN E COMPLEX PO Take 268 mg by mouth once daily Active Other Take 1 tablet by mouth once daily Juice plus Lopes Active Other Take 1 tablet by mouth once daily Juice Plus Fruit Blend Active Other Take 1 tablet by mouth once daily Juice Plus vegetable blend Active Acetaminophen (TYLENOL PO) Take 2 capsules by mouth once daily 8 Active celecoxib (CELEBREX) 200 MG capsuleIndicatio ns:Aftercare following right knee joint replacement surgery TAKE 1 (ONE) CAPSULE BY MOUTH 2 TIMES DAILY 60 capsule 2 Active Additional Information Patient not taking.Reported on 10/05/2022 amLODIPine (Norvasc) 10 MG tablet Take 1 (one) tablet by mouth once daily 3 Active cephalexin (Keflex) 500 MG capsule TAKE 1 CAPSULE BY MOUTH EVERY 6 HOURS 3 Active losartan (Cozaar) 50 MG tablet Take 1 (one) tablet by mouth once daily 2 Active valACYclovir (Valtrex) 1 GM tablet TAKE 2 TABLETS BY MOUTH TWICE DAILY FOR ONE DAY AT THE ONSET OF SYMPTOMS 2 Active CBD oil Take 30 mg by mouth once daily Active Active Problems Problem Noted Date Diagnosed Date History of total right knee replacement 02/17/20 21 Paroxysmal atrial fibrillation in 2018 8 HTN (hypertension), benign 07/06/2017 Hypercholesterolemia 07/06/2017 Status post left knee replacement 06/06/2017 Resolved Problems Problem Noted Date Diagnosed Date Resolved Date Primary osteoarthritis of right knee 05/19/2020 02/16/2021 Social History Tobacco Use Types Packs/Day Years Used Date Smoking Tobacco: Some Days Cigars Last attempted to quit: 2010 Smokeless Tobacco: Former Quit: 01/19/2014 Comments:cigar every once in awhile Alcohol Use Standard Drinks/Week Comments Not Currently 0 (1 standard drink = 0.6 oz pur e alcohol) Sex and Gender Information Value Date Recorded Sex Assigned at Male 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 Sex Male 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 Gender Identity Not on file Sexual Orientation Not on file Last Filed Vital Signs Vital Sign Reading Time Taken Comments Blood Pressure 126/65 01/20/2021 11:31 AM CDT Pulse 67 01/20/2021 11:31 AM CDT Temperature 36.6 C (97.9 F) 01/20/2021 11:31 AM CDT Respiratory Rate 20 01/20/2021 11:31 AM CDT Oxygen Saturation 94% 01/20/2021 11:31 AM CDT Inhaled Oxygen Concentration - - Weight 117.9 kg (260 lb) 02/28/2021 3:47 PM MUSIC TEACHER Height 185.4 cm (6' 0.99) 02/28/2021 3:47 PM CS T Body Mass Index 34.31 02/28/2021 3:47 PM MUSIC TEACHER Plan of Treatment Health Maintenance Due Date Last Done Comments COLOGUARD (AGES 45-75) - COLON CA SCREENING 1950 COLON MONITORING 1950 COLONOSCOPY - COLON CA SCREENING 1950 CT COLONOGRAPHY - COLON CA SCREENING 1950 Colorectal Cancer Screening 1950 FIT - COLON CA SCREENING 1950 FLEX SIG - COLON CA SCREENING 1950 MEDICARE AWV 12 MONTHS 1950 HEPATITIS C SCREENING 04/29/1968 DTAP/TDAP/TD VACCINES (1 - Tdap) 1969 PNEUMOCOCCAL VACCINE 50+ (1 of 2 - PCV) 1969 ZOSTER VACCINE (1 of 2) 2000 AAA SCREENING 2015 DEPRESSION SCREENING 03/19/2024 COVID-19 VACCINE (3 - season) 2024 05/18/2020, 04/15/2020 INFLUENZA VACCINE (#1) 2024 , 12/18/2018, 11/30/2017, Additional history exists Respiratory Syncytial Virus (RSV) Vaccine Pt: or over 60 yrs (1 - 1-dose 75+ series) 2025 HEPATITIS B VACCINE Aged Out No longe r eligible based on patient's age to complete this topic HIB VACCINE Aged Out No longer eligi ble based on patient's age to complete this topic HPV VACCINE Aged Out No longer eligi ble based on patient's age to complete this topic MENINGOCOCCAL (Group B) VACCINE SHARED DECISION-MAKING Aged Out No longer eligible based on patient's age to complete this topic MENINGOCOCCAL GROUPS A/C/Y/W VACCINE Aged Out No longer eligible based on patient's age to complete this topic Medical Devices Implanted Type Area Watch Assembler Device Identifier Shelf Expiration Date Model / Serial / Lot Cmnt Bone Cblt 40gm Hvisc Strl Implanted:Qty: 1 on 06/06/2017 by Mahesh Og MD at [facility] Left: Knee [employer] 01/16/2019 600-15-000 / / [id number] Tray Tib 79mm Kn Cocr I Beam Implanted:Qty: 1 on 06/06/2017 by Mahesh Og MD at [facility] Left: Knee [employer] 03/16/2027 [id number] / / [id number] Cmpnt Ptlr 31mm 1 Pg Wire Ascnt Arcm Kn Implanted:Qty: 1 on 06/06/2017 by Mahesh Og MD at [facility] Left: Knee [employer] 05/17/2022 [id number] / / [id number] Cmpnt Fem Kn Lt Cr Cmnt Prm Vngrd Intlk 67.5mm Implanted:Qty: 1 on 06/06/2017 by Mahesh Og MD at [facility] Left: Knee [employer] 05/12/2027 [id number] / / [id number] Brng [id number] Vngrd Arcm Kn Ant Stab Implanted:Qty: 1 on 06/06/2017 by Mahesh Og MD at [facility] Left: Knee [employer] 05/16/2022 [id number] / / [id number] Brng [id number] Vngrd Arcm Kn Ant Stab Implanted:Qty: 1 on 01/19/2021 by Mahesh Og MD at [facility] Right: Knee [employer] 03/21/2025 [id number] / / [id number] Cmnt Bone Djo Srg Cblt 40gm Hvisc Strl Implanted:Qty: 2 on 01/19/2021 by Mahesh Og MD at [facility] Right: Knee [employer] 04/21/2022 600-15-000 / / [id number] Tray Tib 79mm Kn Cocr I Beam Implanted:Qty: 1 on 01/19/2021 by Mahesh Og MD at [facility] Right: Knee [employer] 08/19/2030 [id number] / / [id number] Cmpnt Fem Kn Rt Cr Cmnt Prm Vngrd Intlk Implanted:Qty: 1 on 01/19/2021 by Mahesh Og MD at [facility] Right: Knee [employer] 09/18/2030 [id number] / / [id number] Cmpnt Ptlr 31mm 1 Pg Wire Ascnt Arcm Kn Implanted:Qty: 1 on 01/19/2021 by Mahesh Og MD at [facility] Right: Knee [employer] 11/19/2025 [id number] / / [id number] Insurance MEDICARE MEDICARE SUPPLEMENT PAYOR GENERIC ANTH MEDICARE MEDICARE Advance Directives * Full Code (Latest Code Status on File) Date Activated Date Inactivated Comments 01/19/2021 2:33 PM 01/20/2021 2:56 PM * Full Code Date Activated Date Inactivated Comments 06/06/2017 4:44 PM 06/09/2017 1:16 PM Care Teams Delivery Clerk Relationship Specialty Start Date End Date Alfred Clark MD [address] [place] [address] PCP - General Family Medicine 05/18/20 [place] [id number] [place] [id number] Orthopedic Surgery 02/20/17
--- OUTSIDE RECORDS SUMMARY | 2025-01-16 09:14 | XMS_ITS | Clinical Summary ---
Author Organization [facility] D Address [address] [place] [id number] Care Team Providers Care Chartered Wealth Manager Name Role Phone Alfred Clark MD Primary Care Provide r Allergies No known active allergies Medications fluticasone propionate (FLONASE) 50 mcg/actuation nasal spray Administer 1 spray into each nostril daily as needed for rhinitis Active coconut oil 1,000 mg capsule Take 2,000 mg by mouth daily Active resveratroL 100 mg capsule Take 100 mg by mouth daily Active omega 9-dxm-pff-fis h oil (Fish OiL) 100-160-1,000 mg capsule Take 1 tablet by mouth daily Active sour chu extract (Tart Chu Extract) 1,000 mg capsule Take 1,200 mg by mouth daily Active vitamin E (AQUASOL E) 1,000 unit capsule Take 268 mg by mouth daily Active losartan (COZAAR) 50 mg tablet Take 1 tablet (50 mg total) by mouth daily 12/19/19 22 Active cholecalcifer ol, vitamin D3, (VITAMIN D3 ORAL) Take by mouth Active cyanocobalami n, vitamin B-12, (VITAMIN B-12 ORAL) Take by mouth Active atorvastatin (LIPITOR) 20 mg tablet TAKE 1 TABLET BY MOUTH AT BEDTIME 90 tablet 1 01/22/20 24 Active amLODIPine (NORVASC) 10 mg tablet TAKE 1 TABLET BY MOUTH EVERY DAY 90 tablet 3 06/24/19 25 Active triamcinolone (KENALOG) 0.1 % ointmentIndic ations:Arthro pod bite, initial encounter Apply to bug bites twice daily as needed for itching 30 g 09/27/19 25 Active fluorouraciL (EFUDEX) 5 % creamIndicati ons:Actinic Keratosis Apply 1:1 mixture of 5-fluorouracil (5FU) and calcipotriene (C) two (2) times a day (BID) to treatment area(s) for four (4) days. Treatment area(s): ears. Mix one (1) fingertip unit (FTU) 5FU (brand name: Efudex) cream and one (1) FTU of C cream in the palm of your hand. Then, apply this 1:1 5FU:C mixture. Apply Vaseline (1) 30 minutes after applying 5FU:C and (2) as needed (PRN) thereafter for irritation. The rash will start around day 4 of treatment and last for 10 days. Make sure to wash your face before applying 5FU:C. You will be more sensitive to the sun for 4-6 weeks after starting 5FU:C, so apply sunblock SPF 50 or higher to treated area every day. You will use a FTU of medicine to treat each hand-sized area of skin. A FTU is the amount of medicine squeezed out of its tube from the last joint of the pointer finger to its tip. In an adult, this amount is ~0.5 g, which will is enough to treat/cover (1) an entire hand, (2) half the face, or (3) one-third of an arm. 40 g 1 09/27/19 25 Active calcipotriene (DOVONOX) 0.005 % ointmentIndic ations:Actini c keratosis Mix 1:1 with 5-fluorouracil (5FU; brand name: Efudex) and then apply twice a day (BID) to ears for four (4) days to treat actinic keratoses (AKs). This treatment will cause a rash and sun sensitivity. The rash can be soothed by Vaseline and other thick emollients. Please make sure to use sun block with sun protection factor (SPF) 50 or higher on treated skin during this treatment and for 4-6 weeks after the treatment. Side effects include: irritation, allergy. 60 g 10/01/19 25 Active metoprolol XL (TOPROL-XL) 50 mg extended release tablet TAKE 1 TABLET BY MOUTH EVERY DAY 90 tablet 3 10/31/19 25 Active hydroCHLOROth iazide (HYDRODIURIL) 25 mg tablet TAKE 1 TABLET (25 MG TOTAL) BY MOUTH DAILY. 90 tablet 3 12/27/19 25 026 Active hydroCHLOROth iazide (HYDRODIURIL) 25 mg tablet Take 1 tablet (25 mg total) by mouth daily 30 tablet 11 12/27/19 24 025 Discontinued Active Problems Problem Noted Date Diagnosed Date History of total right knee replacement 02/17/20 21 08/04/2022 S/P ablation of atrial fibrillation 01/27/2020 Persistent atrial fibrillation 11/27/2019 Overview (11/27/2019): Added automatically from request for surgery [id number] Assessment & Plan (01/01/2025 11:58 AM CDT): The patient is 5 years status post ablation for atrial fibrillation, doing well. Maintaining sinus rhythm with without antiarrhythmic drug therapy. No changes to management The patient has a [id number] score of 2. He is off anticoagulation, per personal preference. The patient will follow-up with me in 12 months for an office visit and twelve- lead ECG. Assessment & Plan (12/27/2023 1:54 PM CDT): The patient is 4 years status post ablation for atrial fibrillation, doing well. Maintaining sinus rhythm without antiarrhythmic drug therapy. No changes to management necessary The patient has a DHH2SK7-BZAm score of 2. He is off anticoagulation per personal preference. The patient will follow-up with me in 12 months for an office visit and twelve- lead ECG. Assessment & Plan (12/21/2022 2:48 PM CDT): The patient is three years status post ablation for atrial fibrillation, doing well. Maintaining sinus rhythm without antiarrhythmic therapy. No changes to medications The patient has a [id number]-YQPi score of 2. The patient is off anticoagulation, per personal preference. The patient will follow-up with me in 12 months for an office visit and twelve- lead ECG. Assessment & Plan (12/26/2021 11:40 AM CDT): Persistent atrial fibrillation, maintaining sinus rhythm since ablation 2 years ago. We will continue to monitor and follow closely, and manage new / recurrent arrhythmia expectantly. He is off anticoagulation per personal preference. Chads Vasc score is 2. If he experiences recurrence, we will reinitiate anticoagulation. The patient will follow-up with me in 12 months for an office visit and twelve- lead ECG. Assessment & Plan (11/03/2020 12:56 PM CDT): Persistent atrial fibrillation, presently 10 months post ablation. He is doing well, without recurrence. Assessment & Plan (04/29/2020 11:19 AM HAM PASSER): Persistent atrial fibrillation, presently 4 months status post ablation. He is doing well, without recurrence. We will continue to monitor and follow closely, and manage new / recurrent arrhythmia expectantly. Assessment & Plan (01/27/2020 3:06 PM HAM PASSER): Persistent atrial fibrillation, presently 6 weeks status post catheter ablation. He is maintaining sinus rhythm. I recommended that he discontinue sotalol. We will reinitiate metoprolol, which the patient was previously on for high blood pressure. We will continue to monitor and follow closely, and manage new / recurrent arrhythmia expectantly. Assessment & Plan (11/27/2019 1:45 PM CDT): The patient has persistent atrial fibrillation that has been resistant to antiarrhythmic drug therapy with sotalol. We discussed options for management, and the patient is interested in catheter ablation. We discussed the rationale for atrial fibrillation ablation, including the steps involved in ablation. I detailed the risks of the procedure, including vascular injury/hematoma, myocardial injury/perforation, stroke, myocardial infarction, pulmonary vein stenosis, thermal esophageal injury, phrenic nerve injury, and . I estimated a 70% chance of freedom from long-term atrial arrhythmia, and the patient understands that occasionally a second procedure is necessary. Because of the patient's persistent atrial fibrillation, I recommended that they undergo transesophageal echocardiography (to exclude the presence of left atrial thrombus) immediately prior to EP study and ablation. If he wishes to proceed, my office will make the appropriate arrangements. From: March, Jeannine LS, Maranda JS, Moraima H, Reji LIZY, Samuel JE, Vickie MENDY, cSar PT, Jason FORMAN, ME, Monty KT, Hany RL, Jeremy WG, Doug PJ, Melvi CM, Nya CW. 2014 AHA/ACC/HRS guideline for the management of patients with atrial fibrillation: a report of the [place] [employer]/[place] Heart Association Task Force on Practice Guidelines and the Heart Rhythm Society. J Am Cherry Cardiol 2014. 6.3. AF Catheter Ablation to Maintain Sinus Rhythm: Recommendations Class IIa AF catheter ablation is reasonable for selected patients with symptomatic persistent AF refractory or intolerant to at least 1 class I or III antiarrhythmic medication (388, [phone]). (Level of Evidence: A) Anticoagulation management encounter 11/27/2019 Assessment & Plan (11/03/2020 12:57 PM CDT): Chads Vasc score is 2. The patient wishes to discontinue anticoagulation. I recommended that he has least have an event recorder performed for 7 days to ensure that he is not experiencing subclinical paroxysmal atrial fibrillation. He understands the risks of discontinuation of anticoagulation, should he choose to do this. The patient will follow-up with me in 12 months for an office visit and twelve- lead ECG. Assessment & Plan (04/29/2020 11:35 AM HAM PASSER): The patient has a QHQ8CC7-KDBs score of 2 (annualized risk of stroke 2.2 %). I have therefore recommended that he remain anticoagulated for thromboprophylaxis. The patient will follow-up with me in 6 months for an office visit and twelve- lead ECG. Assessment & Plan (01/27/2020 3:07 PM HAM PASSER): The patient has a ZYO9XB5-WKRw score of 2 (annualized risk of stroke 2%). I have therefore recommended that he remain anticoagulated for thromboprophylaxis. The patient will follow-up with me in 3 months for an office visit and twelve- lead ECG. Assessment & Plan (11/27/2019 1:46 PM CDT): The patient has a WWB3AX5-LEGg score of 2 (annualized risk of stroke 2%). I have therefore recommended that he remain anticoagulated for thromboprophylaxis. HTN (hypertension), benign 07/06/201708/04 Hypercholesterolemia 07/06/2017 08/04/2022 Resolved Problems Problem Noted Date Diagnosed Date Resolved Date terminal block assembler current use of antiarrhythmic drug 0 01/27/2020 Assessment & Plan (11/27/2019 1:46 PM CDT): 12-lead ECG today does not demonstrate any changes that would prohibit continued use of sotalol. We will continue the patient on the same dose and schedule, though it is my intention to discontinue this medication shortly after ablation. As long as the patient continues on this medication, an ECG should be performed at least every 6 months to monitor for toxicity. Encounters Date Type Department Care Team Description 01/01/2025 11:45 AM CDT Office Visit [facility] [address] [address] Jj Pritchard MD Atrial fibrillation, unspecified type (HCC) (Primary Dx); Persistent atrial fibrillation (HCC) from Last 3 Months Surgical History Surgery Date Site/Laterality Comments KNEE ARTHROSCOPY W/ LATERAL RELEASE Ankle surgery JOINT REPLACEMENT 06/02/2017 $01/19/2021 VASECTOMY 03-28-1983 Medical History Medical History Date Comments Arrhythmia Atrial fibrillation (HCC) Hyperlipidemia Arthritis 2012 Heart disease 2019 Hypertension 2012 Sleep apnea 2019 Family History Medical History Relation Name Comments Hearing loss Father Cornelio Hypertension Father Cornelio Memory loss Father Cornelio Alzheimer's disease Mother Monik Arrhythmia Mother Monik Arthritis Mother Monik Hypertension Mother Monik Cancer Paternal Grandfather Khoi Bettencourt Hypertension Paternal Grandmother Lori Bettencourt Relation Name Status Comments Father Cornelio Mother Monik Paternal Grandfather Khoi Bettencourt Paternal Grandmother Lori Bettencourt Social History Tobacco Use Types Packs/Day Years Used Date Smoking Tobacco: Some Days Cigars Smokeless Tobacco: Former Chew Quit: 07/09/2009 Tobacco Cessation:Ready to Q uit: Not Asked; Counseling Given: Not Answered Alcohol Use Standard Drinks/Week Comments Yes 3 (1 standard drink = 0.6 oz pur e alcohol) social/weekend drinker AUDIT-C Answer Date Recorded Q1: How often do you have a drink containing alcohol? Never 09/15/2022 Q2: How many drinks containi ng alcohol do you have on a typical day when you are drinking? Patient does not drink Q3: How often do you have si x or more drinks on one occasion? Never 09/15/2022 Sex and Gender Information Value Date Recorded Sex Assigned at Not on file Legal Sex Male 3:50 PM CDT Gender Identity Male 05/28/2020 9:25 AM HAM PASSER Sexual Orientation Not on file Occupation Industry Job Start Date Job End Date retired Not on file Not on file Not on file Obstetrics History Last Filed Vital Signs Vital Sign Reading Time Taken Comments Blood Pressure 122/74 01/01/2025 11:48 AM CDT Pulse 54 01/01/2025 11:48 AM CDT Temperature 36.8 C (98.3 F) 12/04/2019 8:10 AM CDT Respiratory Rate 16 06/16/2021 11:54 AM CDT Oxygen Saturation 97% 10/15/2024 10:12 AM CDT Inhaled Oxygen Concentration - - Weight 117.5 kg (259 lb) 01/01/2025 11:48 AM CDT Height 185.4 cm (6' 1) 01/01/2025 11:48 AM CDT Body Mass Index 34.17 01/01/2025 11:48 AM CDT Plan of Treatment Health Maintenance Due Date Last Done Comments Colon Cancer Screening-Colonoscopy 1950 Depression Screening 1950 Hepatitis C Screening 1950 Abdominal Aortic Aneurysm (A AA) Screen 2015 Well Visit 65+ 2015 DTaP/Tdap/Td Vaccine (2 - Td or Tdap) 07/03/2019 07/02/2009 Fall Risk Assessment 12/03/2020 12/04/2019 Pneumococcal vaccine 65+ (3 of 3 - PCV20 or PCV21) 02/10/2021 02/11/2016, 03/31/2013 Influenza Vaccine (#1) 2024 9, 11/30/2017, 11/28/2016, Additional history exists Hepatitis B Screening Completed 01/17/2010 , 08/02/2009, 07/02/2009 Zoster Vaccine Completed 02/20/2018, 05/2017, 05/18/2010, Additional history exists Medical Devices Implanted Type Area Home Visitor Home [employer] Head Start Device Identifier Shelf Expiration Date Model / Serial / Lot [employer] [id number] Vascade 6/7fr Bioabsorbable Vascular System Compression Collagen - [id number] - [id number] Implanted:Qty: 1 on 12/03/2019 by Jj Pritchard MD at [facility] Collagen [employer] 08/24/2021 [id number] 5U / [id number] / [id number] [employer] [id number] System 6-12fr Mvp Venous Closure Vascade - [id number] - [id number] Implanted:Qty: 1 on 12/03/2019 by Jj Pritchard MD at [facility] Collagen [employer] 10/27/2021 800-612C-1 0U / [id number] / [id number] [employer] [id number] System 6-12fr Mvp Venous Closure Vascade - [id number] - [id number] Implanted:Qty: 1 on 12/03/2019 by Jj Pritchard MD at [facility] Collagen [employer] 10/27/2021 800-612C-1 0U / [id number] / [id number] [employer] [id number] System 6-12fr Mvp Venous Closure Vascade - [id number] - [id number] Implanted:Qty: 1 on 12/03/2019 by Jj Pritchard MD at [facility] Collagen [employer] 10/27/2021 800-612C-1 0U / [id number] / [id number] Procedures Procedure Name Priority Date/Time Associated Diagnosis Comments ECG 12-LEAD Routine 01/01/2025 11:48 AM CDT Atrial fibrillation, unspecified type (HCC) from Last 3 Months Results * ECG 12 lead (01/01/2025 11:48 AM CDT) us Jj Pritchard MD ECG ORDERABLES Final R esult from Last 3 Months Insurance MEDICARE [facility] SUPPLEMENT Care Teams Chartered Wealth Manager Relationship Specialty Start Date End Date Alfred Clark MD [address] [place] [address] PCP - General Family Medicine 06/28/21
[2025-01-16 09:20] LABS: Hematocrit 43.4 % (37.0-46.0); Hemoglobin 14.2 g/dL (12.4-15.3); Mean Corpuscular HGB Conc 32.7 g/dL (32-36); Mean Corpuscular Hemoglobin 29.2 pg (27.0-31.0); Mean Corpuscular Volume 89.1 fL (78.0-102.0); Platelet Count Result 216 K/mm3 (150-420); Red Blood Count 4.87 M/mm3 (4.70-6.10); White Blood Count 5.6 K/mm3 (4.8-10.8)
[2025-01-16 09:29] LABS: Add Urine Microscopic? YES; Appearance Urine Clear (Clear); Glucose Urine UA Negative (Negative); Leukocyte Esterase Ur Negative (Negative); Nitrate Urine Negative (Negative); Specific Grav Ur 1.025 (1.010-1.020)
[2025-01-16 10:10] LABS: Anion Gap 13 mmol/L (4-12); Blood Urea Nitrogen 22 mg/dL (9-20); Calcium 9.2 mg/dL (8.4-10.2); Carbon Dioxide 27 mmol/L (22-30); Chloride 103 mmol/L (98-107); Cholesterol 131 mg/dL (0-200); Estimated Glomerular Filt Rate > 60; Glucose 103 mg/dL (65-110); HDL Direct 46 mg/dL; Osmolality Calculated 299 mOsm/kg (285-295); Potassium 4.1 mmol/L (3.4-5.0); Sodium 143 mmol/L (137-145); Triglycerides 81 mg/dL (<150)
[2025-01-16 10:38] LABS: Thyroid Stimulating Hormone 3.790 uIU/mL (0.465-4.680)
== END 2025-01-16 08:54 | disposition home or self-care (01) ==
LOC: CHSLAB 08:56
PROVIDERS: PCP Family Medicine; Visit Provider Family Medicine
DX: I10 Essential (primary) hypertension (principal); E78.2 Mixed hyperlipidemia
CPT/HCPCS: 36415; 80048; 80061; 81001; 84443; 85027

== ENCOUNTER 2025-03-16 00:58 | Day surgery (SDC) | payer MEDICARE, SELFPAY ==
[2025-02-19 14:01] VITALS: BMI 32.5
--- OUTSIDE RECORDS SUMMARY | 2025-03-16 01:03 | XMS_ITS | Clinical Summary ---
Author Organization [facility] Address [address] [place] [address] Care Team Providers Care Mechanical Drawing Teacher Name Role Phone Mahesh Og MD Unavailable Alfred Clark MD Primary Care Provider [phone]- [phone] Source Comments [facility],non-owned Affiliates and Associated Physician Practices is amultiple site organization consisting of ambulatory clinics and hospital sitesin [place], [place], [place] and [place]. This disclosure is being madepursuant to the Care Everywhere program and may not contain all information available regarding this patient. Last updated 17.[facility] Allergies No known active allergies Medications * [...] Sex Assigned at Male 02/13/2021 8:07 AM GROUND OPERATIONS CREW MEMBER Legal Sex Male 9:09 AM GROUND OPERATIONS CREW MEMBER Gender Identity Not on file Sexual Orientation [...] 117.9 kg (260 lb) 02/28/2021 3:47 PM GROUND OPERATIONS CREW MEMBER Height 185.4 cm (6' 0.99) 02/28/2021 3:47 PM CS T Body Mass Index 34.31 02/28/2021 3:47 PM GROUND OPERATIONS CREW MEMBER Plan of Treatment Health Maintenance Due Date [...] this topic Medical Devices Implanted Type Area Metal Moulder'S Assistant Device Identifier Shelf Expiration Date Model / Serial / Lot Cmnt Bone Cblt 40gm Hvisc Strl Implanted:Qty: 1 on 06/06/2017 by Mahesh Og MD at [facility] Left: Knee [employer] 01/16/2019 [id number] / / [id number] Tray Tib 79mm Kn Cocr I Beam Implanted:Qty: 1 on 06/06/2017 by Mahesh Og MD at [facility] Left: Knee [employer] 03/16/2027 [id number] / / [id number] Cmpnt Ptlr 31mm 1 Pg Wire Ascnt Arcm Kn Implanted:Qty: 1 on 06/06/2017 by Mahesh Og MD at [facility] Left: Knee [employer] 05/17/2022 [id number] / / [id number] Cmpnt Fem Kn Lt Cr Cmnt Prm Vngrd Intlk 67.5mm Implanted:Qty: 1 on 06/06/2017 by Mahesh Og MD at [facility] Left: Knee [employer] 05/12/2027 [id number] / / [id number] Brng [id number] Vngrd Arcm Kn Ant Stab Implanted:Qty: 1 on 06/06/2017 by Mahesh Og MD at [facility] Left: Knee [employer] 05/16/2022 [id number] / / [id number] Brng [id number] Vngrd Arcm Kn Ant Stab Implanted:Qty: 1 on 01/19/2021 by Mahesh Og MD at [facility] Right: Knee [employer] 03/21/2025 [id number] / / [id number] Cmnt Bone Djo Srg Cblt 40gm Hvisc Strl Implanted:Qty: 2 on 01/19/2021 by Mahesh Og MD at [facility] Right: Knee [employer] 04/21/2022 600-15-000 / / [id number] Tray Tib 79mm Kn Cocr I Beam Implanted:Qty: 1 on 01/19/2021 by Mahesh Og MD at [facility] Right: Knee [employer] 08/19/2030 [id number] / / [id number] Cmpnt Fem Kn Rt Cr Cmnt Prm Vngrd Intlk Implanted:Qty: 1 on 01/19/2021 by Mahesh Og MD at [facility] Right: Knee [employer] 09/18/2030 [id number] / / [id number] Cmpnt Ptlr 31mm 1 Pg Wire Ascnt Arcm Kn Implanted:Qty: 1 on 01/19/2021 by Mahesh Og MD at [facility] Right: Knee [employer] 11/19/2025 [id number] / / [id number] Insurance MEDICARE MEDICARE SUPPLEMENT [employer] MEDICARE MEDICARE Advance Directives * Full Code (Latest Code Status on File) Date Activated Date Inactivated Comments 01/19/2021 2:33 PM 01/20/2021 2:56 PM * Full Code Date Activated Date Inactivated Comments 06/06/2017 4:44 PM 06/09/2017 1:16 PM Care Teams Mechanical Drawing Teacher Relationship Specialty Start Date End Date Alfred Clark MD [address] [place] [address] PCP - General Family Medicine 05/18/20 [place] [id number] [place] [id number] Orthopedic Surgery 02/20/17
--- OUTSIDE RECORDS SUMMARY | 2025-03-16 01:03 | XMS_ITS | Clinical Summary ---
Author Organization [facility] D Address [address] [place] [id number] Care Team Providers Care Machine Ii Engraver Name Role Phone Alfred Clark MD Primary Care Provide r Allergies No known active allergies Medications fluticasone propionate (FLONASE) 50 mcg/actuation nasal spray Administer 1 spray into each nostril daily as needed for rhinitis Active coconut oil 1,000 mg capsule Take 2,000 mg by mouth daily Active resveratroL 100 mg capsule Take 100 mg by mouth daily Active omega 0-mkn-xcw-fish oil (Fish OiL) 100-160-1,000 mg capsule Take 1 tablet by mouth daily Active sour chu extract (Tart Chu Extract) 1,000 mg capsule Take 1,200 mg by mouth daily Active vitamin E (AQUASOL E) 1,000 unit capsule Take 268 mg by mouth daily Active losartan (COZAAR) 50 mg tablet Take 1 tablet (50 mg total) by mouth daily 2 Active cholecalcifero l, vitamin D3, (VITAMIN D3 ORAL) Take by mouth Active cyanocobalamin , vitamin B-12, (VITAMIN B-12 ORAL) Take by mouth Activ e atorvastatin (LIPITOR) 20 mg tablet TAKE 1 TABLET BY MOUTH AT BEDTIME 90 tablet 1 4 Active amLODIPine (NORVASC) 10 mg tablet TAKE 1 TABLET BY MOUTH EVERY DAY 90 tablet 3 5 Active triamcinolone (KENALOG) 0.1 % ointmentIndica tions:Arthropo d bite, initial encounter Apply to bug bites twice daily as needed for itching 30 g 5 Active fluorouraciL (EFUDEX) 5 % creamIndicatio ns:Actinic Keratosis Apply 1:1 mixture of 5-fluorouracil (5FU) [...] one-third of an arm. 40 g 1 5 Active calcipotriene (DOVONOX) 0.005 % ointmentIndica tions:Actinic keratosis Mix 1:1 with 5-fluorouracil (5FU; brand [...] Side effects include: irritation, allergy. 60 g 5 Active metoprolol XL (TOPROL-XL) 50 mg extended release tablet TAKE 1 TABLET BY MOUTH EVERY DAY 90 tablet 3 5 Active hydroCHLOROthi azide (HYDRODIURIL) 25 mg tablet TAKE 1 TABLET (25 MG TOTAL) BY MOUTH DAILY. 90 tablet 3 5 12/27/19 26 Active Active Problems Problem Noted Date Diagnosed Date History of total right knee replacement 02/17/20 21 08/04/2022 S/P ablation of atrial fibrillation 01/27/2020 Persistent atrial fibrillation 11/27/2019 Overview (11/27/2019): Added automatically from request for surgery [id number] Assessment & Plan (01/01/2025 11:58 AM CDT): The patient is 5 years status post ablation for atrial fibrillation, doing well. Maintaining sinus rhythm with without antiarrhythmic drug therapy. No changes to management The patient has a [id number] score of 2. He is off anticoagulation, per personal preference. The patient will follow-up with me in 12 months for an office visit and twelve- lead ECG. Assessment & Plan (12/27/2023 1:54 PM CDT): The patient is 4 years status post ablation for atrial fibrillation, doing well. Maintaining sinus rhythm without antiarrhythmic drug therapy. No changes to management necessary The patient has a CTN6CM0-SZNe score of 2. He is off anticoagulation per personal preference. The patient will follow-up with me in 12 months for an office visit and twelve- lead ECG. Assessment & Plan (12/21/2022 2:48 PM CDT): The patient is three years status post ablation for atrial fibrillation, doing well. Maintaining sinus rhythm without antiarrhythmic therapy. No changes to medications The patient has a [id number]-NMMv score of 2. The patient is off [...] recurrence. Assessment & Plan (04/29/2020 11:19 AM PROCESS SAFETY MANAGER): Persistent atrial fibrillation, presently 4 months status post ablation. He is doing well, without recurrence. We will continue to monitor and follow closely, and manage new / recurrent arrhythmia expectantly. Assessment & Plan (01/27/2020 3:06 PM PROCESS SAFETY MANAGER): Persistent atrial fibrillation, presently 6 weeks status [...] make the appropriate arrangements. From: March, Jeannine ANN, Maranda JS, Moraima H, Reji LIZY, Samuel JE, Vickie MENDY, Scar PT, Jason FORMAN, ME, Monty KT, Hany RL, Jeremy WG, Doug PJ, Melvi CM, Nya CW. 2014 AHA/ACC/HRS guideline for the management of patients with atrial fibrillation: a report of the [place] [employer]/[place] [employer] Task Force on Practice Guidelines [...] ECG. Assessment & Plan (04/29/2020 11:35 AM PROCESS SAFETY MANAGER): The patient has a DAA0BM3-MZEu score of 2 (annualized risk of stroke 2.2 %). I have therefore recommended that he remain anticoagulated for thromboprophylaxis. The patient will follow-up with me in 6 months for an office visit and twelve- lead ECG. Assessment & Plan (01/27/2020 3:07 PM PROCESS SAFETY MANAGER): The patient has a PIX1FV5-QHTy score of 2 (annualized risk of stroke 2%). I have therefore recommended that he remain anticoagulated for thromboprophylaxis. The patient will follow-up with me in 3 months for an office visit and twelve- lead ECG. Assessment & Plan (11/27/2019 1:46 PM CDT): The patient has a PYE2MD5-NUUi score of 2 (annualized risk of stroke 2%). I have therefore recommended that he remain anticoagulated for thromboprophylaxis. HTN (hypertension), benign 07/06/201708/04 Hypercholesterolemia 07/06/2017 08/04/2022 Resolved Problems Problem Noted Date Diagnosed Date Resolved Date residential specialist current use of antiarrhythmic drug 0 01/27/2020 [...] 11:45 AM CDT Office [facility] [address] [place] [id number] Jj Pritchard MD Atrial fibrillation, unspecified type [...] Comments Father Cornelio Mother Monik Paternal Grandfather Khio Bettencourt Paternal Grandmother Lori Bettencourt Social History [...] CDT Gender Identity Male 05/28/2020 9:25 AM PROCESS SAFETY MANAGER Sexual Orientation Not on file Occupation Industry Job Start Date Job End Date retired Not on file Not on file Not on file Last Filed Vital Signs [...] history exists Medical Devices Implanted Type Area Cutter Barrel Drum Device Identifier Shelf Expiration Date Model / Serial / Lot [employer] [id number] Vascade 6/7fr Bioabsorbable Vascular System Compression Collagen - [id number] - [id number] Implanted:Qty: 1 on 12/03/2019 by Jj Pritchard MD at [facility] Collagen [employer] 08/24/2021 [id number] / [id number] / [id number] [employer] [id number] System 6-12fr Mvp Venous Closure Vascade - [id number] - [id number] Implanted:Qty: 1 on 12/03/2019 by Jj Pritchard MD at [facility] Collagen [employer] 10/27/2021 [id number]-1 [id number] / [id number] / [id number] [employer] [id number] System 6-12fr Mvp Venous Closure Vascade - [id number] - [id number] Implanted:Qty: 1 on 12/03/2019 by Jj Pritchard MD at [facility] Collagen [employer] 10/27/2021 800-612C-1 0U / [id number] / [id number] [employer] [id number] System 6-12fr Mvp Venous Closure Vascade - [id number] - [id number] Implanted:Qty: 1 on 12/03/2019 by Jj Pritchard MD at [facility] Collagen [employer] 10/27/2021 800-612C-1 0U / [id number] / [id number] Procedures Procedure Name Priority Date/Time Associated Diagnosis Comments ECG 12-LEAD Routine 01/01/2025 11:48 AM CDT Atrial fibrillation, unspecified type (HCC) from Last 3 Months Results * ECG 12 lead (01/01/2025 11:48 AM CDT) us Jj Pritchard MD ECG ORDERABLES Final R esult from Last 3 Months Insurance MEDICARE [facility] MEDICARE [facility] MEDICARE SUPPLEMENT MEDICARE [facility] Address: [address] [address] [place] [address] [facility] MEDICARE SUPPLEMENT Care Teams Machine Ii Engraver Relationship Specialty Start Date End Date Alfred Clark MD [address] [place] [address] PCP - General Family Medicine 06/28/21
[2025-03-16 09:13] VITALS: BP 122/76; PULSE 53; RESP 18; TEMP 36.9; O2SAT 98
[2025-03-16] MEDS: LACTATED RINGERS 1,000 ML 150 ML IV CONT (09:24)
--- NOTE | 2025-03-16 09:57 | PM.HPGS ---
History of Present Illness History of Present Illness Consent: Risks, benefits, and alternatives have been discussed and questions answered. Patient agrees to proceed with procedure. Chief complaint: Personal history of colon polyps, unspecified Narrative: Marlo Bettencourt is a 74 year old male Review of Systems Review of Systems: All systems reviewed & are unremarkable except as noted in HPI and below Constitutional: Constitutional: Reports as per HPI Cardiovascular: Cardiovascular: Reports as per HPI, Denies chest pain, Denies leg edema and Denies lightheadedness Respiratory: Respiratory: Reports as per HPI and Denies dyspnea Gastrointestinal: Gastrointestinal: Reports as per HPI and Denies abdominal pain Genitourinary: Genitourinary: Reports as per HPI Musculoskeletal: Musculoskeletal: Reports as per HPI Neurologic: Reports as per HPI, Denies Abnormal speech present and Denies confusion [facility] Past Medical History Medical History Colonic polyp Arthritis of knee, right Primary localized osteoarthritis of left knee Primary osteoarthritis of right ankle Dyslipidemia Afib Arthritis FEET AND KNEES DANAE on CPAP HTN (hypertension) Hypercholesterolemia Obesity Surgical History Surgical History History of ankle surgery History of bilateral knee replacement History of knee replacement procedure of left knee Family History Family History Mother Hypertension Alzheimer disease Father Hypertension Alzheimer disease Other Cerebrovascular accident Family history of arthritis Family history of lung cancer Social History Social History Smoking status: Former smoker Tobacco type: cigars Additional smoking assessment comments: Former cigarette smoker Quit 03/19/11 Alcohol intake: current Drinks per week: 3 Alcohol use details: social drinker Substance use: never Substance use type: does not use Living arrangements: with family Occupation/Education: retired Gender identity (if verbalized by the patient): Male Sexual Orientation (if Verbalized by the Patient): Straight or Heterosexual Spiritual care concerns: No Agree to blood products: Yes Meds Home Medications and Allergies Home Medications ?Medication ?Instructions ?Recorded ?Confirmed ?Type atorvastatin 20 mg tablet 20 mg PO HS 03/27/19 03/16/25 History fluticasone propionate 50 1 spray intranasal DAILY PRN 03/27/19 03/16/25 History mcg/actuation nasal Congestion spray,suspension (Flonase Allergy Relief) sotalol 80 mg tablet 80 mg PO Q12HR #60 tabs 10/01/19 02/19/25 Rx apixaban 5 mg tablet (Eliquis) See Rx Instructions .Route 08/07/20 02/19/25 Rx .COMPLEX #180 tabs amlodipine 10 mg tablet 10 mg PO DAILY 06/16/21 03/16/25 History hydrochlorothiazide 12.5 mg tablet 25 mg PO QAM 06/16/21 03/16/25 History metoprolol succinate 50 mg 50 mg PO DAILY 02/19/25 03/16/25 History tablet,extended release 24 hr Allergies Allergy/AdvReac Type Severity Reaction Status Date / Time No Known Allergies Allergy Verified 02/19/25 13:57 Vital Signs Vital Signs - 24 hr 03/16/25 09:13 Temperature 98.5 F Pulse Rate 53 L Respiratory Rate 18 Blood Pressure 122/76 Pulse Oximetry 98 Oxygen Delivery Room Air Exam Const: General: comfortable and no acute distress Neck: Neck: no JVD Carotids: no bruits Resp: Auscultation: clear to auscultation bilaterally, no crackles, no rales, no rhonchi and no wheezes Cardio: Rate: regular rate Rhythm: abnormal rhythm Heart sounds: no murmurs GI: Inspection: non-distended Neuro: Speech: normal speech Extrem: Right lower extremity: no edema Left lower extremity: no edema Assessment and Plan Assessment and plan (1) Benign colonic polyp: Code(s): K63.5 - Polyp of colon Status: Acute Plan 74-year-old male with history of colon polyps. Patient is here for surveillance colonoscopy.procedure discussed with the patient.
--- NOTE | 2025-03-16 09:59 | PM.HPGS ---
History of Present Illness History of Present Illness Consent: Risks, benefits, and alternatives have been discussed and questions answered. Patient agrees to proceed with procedure. Chief complaint: Personal history of colon polyps, unspecified Narrative: Marlo Bettencourt is a 74 year old male [facility] Past Medical History Medical History (Updated 03/16/25 @ 09:59 by Alicja Tesfaye MD) Colonic polyp Arthritis of knee, right Primary localized osteoarthritis of left knee Primary osteoarthritis of right ankle Dyslipidemia Afib Arthritis FEET AND KNEES DANAE on CPAP HTN (hypertension) Hypercholesterolemia Obesity Surgical History Surgical History (Updated 06/16/21 @ 10:30 by Brenna Pena) History of ankle surgery History of bilateral knee replacement History of knee replacement procedure of left knee Family History Family History Mother Hypertension Alzheimer disease Father Hypertension Alzheimer disease Other Cerebrovascular accident Family history of arthritis Family history of lung cancer Social History Social History (Updated 06/16/21 @ 10:31 by Brenna Pena) Smoking status: Former smoker Tobacco type: cigars Additional smoking assessment comments: Former cigarette smoker Quit 03/19/11 Alcohol intake: current Drinks per week: 3 Alcohol use details: social drinker Substance use: never Substance use type: does not use Living arrangements: with family Occupation/Education: retired Gender identity (if verbalized by the patient): Male Sexual Orientation (if Verbalized by the Patient): Straight or Heterosexual Spiritual care concerns: No Agree to blood products: Yes Meds Home Medications and Allergies Home Medications ?Medication ?Instructions ?Recorded ?Confirmed ?Type atorvastatin 20 mg tablet 20 mg PO HS 03/27/19 03/16/25 History fluticasone propionate 50 1 spray intranasal DAILY PRN 03/27/19 03/16/25 History mcg/actuation nasal Congestion spray,suspension (Flonase Allergy Relief) sotalol 80 mg tablet 80 mg PO Q12HR #60 tabs 10/01/19 02/19/25 Rx apixaban 5 mg tablet (Eliquis) See Rx Instructions .Route 08/07/20 02/19/25 Rx .COMPLEX #180 tabs amlodipine 10 mg tablet 10 mg PO DAILY 06/16/21 03/16/25 History hydrochlorothiazide 12.5 mg tablet 25 mg PO QAM 06/16/21 03/16/25 History metoprolol succinate 50 mg 50 mg PO DAILY 02/19/25 03/16/25 History tablet,extended release 24 hr Allergies Allergy/AdvReac Type Severity Reaction Status Date / Time No Known Allergies Allergy Verified 02/19/25 13:57 Vital Signs Vital Signs - 24 hr 03/16/25 09:13 Temperature 98.5 F Pulse Rate 53 L Respiratory Rate 18 Blood Pressure 122/76 Pulse Oximetry 98 Oxygen Delivery Room Air
--- NOTE | 2025-03-16 09:59 | WPDANESEPPF ---
Anes - Initial Pre Proc Eval Procedure: Operation Date: 03/16/25 13:00 Proposed Procedures p Screening Colonoscopy - Yaron Cuba MD Date/Time: 03/16/25 09:59 Surgeon: Yaron Cuba MD Pre Op Diagnosis: Personal history of colon polyps, unspecified Patient Data Age: 74 Gender: M Height: 1.85 m Weight: 112.3 kg Last Vital Signs Temp 36.9 C 03/16/25 09:13 Pulse 53 L 03/16/25 09:13 Resp 18 03/16/25 09:13 BP 122/76 03/16/25 09:13 Pulse Ox 98 03/16/25 09:13 O2 Del Method Room Air 03/16/25 09:13 Allergies Allergy/AdvReac Type Severity Reaction Status Date / Time No Known Allergies Allergy Verified 02/19/25 13:57 Home Medications ?Medication ?Instructions ?Recorded ?Confirmed ?Type atorvastatin 20 mg tablet 20 mg PO HS 03/27/19 03/16/25 History fluticasone propionate 50 1 spray intranasal DAILY PRN 03/27/19 03/16/25 History mcg/actuation nasal Congestion spray,suspension (Flonase Allergy Relief) sotalol 80 mg tablet 80 mg PO Q12HR #60 tabs 10/01/19 02/19/25 Rx apixaban 5 mg tablet (Eliquis) See Rx Instructions .Route 08/07/20 02/19/25 Rx .COMPLEX #180 tabs amlodipine 10 mg tablet 10 mg PO DAILY 06/16/21 03/16/25 History hydrochlorothiazide 12.5 mg tablet 25 mg PO QAM 06/16/21 03/16/25 History metoprolol succinate 50 mg 50 mg PO DAILY 02/19/25 03/16/25 History tablet,extended release 24 hr Patient hx anesthesia problems: none Family hx anesthesia problems: none Results Review: All pre-operative results and documents have been reviewed as part of the pre-operative evaluation. [facility] Past Medical History Medical History Colonic polyp Arthritis of knee, right Primary localized osteoarthritis of left knee Primary osteoarthritis of right ankle Dyslipidemia Afib Arthritis FEET AND KNEES DANAE on CPAP HTN (hypertension) Hypercholesterolemia Obesity Surgical History Surgical History History of ankle surgery History of bilateral knee replacement History of knee replacement procedure of left knee Family History Family History Mother Hypertension Alzheimer disease Father Hypertension Alzheimer disease Other Cerebrovascular accident Family history of arthritis Family history of lung cancer Social History Social History Smoking status: Former smoker Tobacco type: cigars Additional smoking assessment comments: Former cigarette smoker Quit 03/19/11 Alcohol intake: current Drinks per week: 3 Alcohol use details: social drinker Substance use: never Substance use type: does not use Living arrangements: with family Occupation/Education: retired Gender identity (if verbalized by the patient): Male Sexual Orientation (if Verbalized by the Patient): Straight or Heterosexual Spiritual care concerns: No Agree to blood products: Yes Anes - Eval Final PreProcedure Day of Procedure 03/16/25 09:59 Patient weight: obese Heart: regular rate and rhythm Lungs: clear to auscultation Airway: Mallampati scale class III Neurological: alert and oriented Last oral intake: >/= 8 hours ASA classification: III Emergent: no Anesthetic plan: proceed Anesthesia type and monitoring: general GIVS and standard monitoring Results Review: All pre-operative results and documents have been reviewed as part of the pre-operative evaluation. Informed Consent: The patient's anesthetic plan and its attendant risks and benefits were discussed with the patient/family/POA. Questions were solicited and answers provided to the satisfaction of the patient/family/POA.
[2025-03-16 10:20] VITALS: BP 88/59; PULSE 51; RESP 13; O2SAT 93
[2025-03-16 10:30] VITALS: BP 99/50; PULSE 49; RESP 18; O2SAT 96
[2025-03-16 10:40] VITALS: BP 118/74; PULSE 47; RESP 16; O2SAT 97
== END 2025-03-16 11:00 | disposition home or self-care (01) ==
PROVIDERS: Internal Medicine Gastroenterology; PCP Family Medicine; Referring Provider Family Medicine; Visit Provider Internal Medicine Gastroenterology
PROC: 0DJD8ZZ Inspection of Lower Intestinal Tract, Via Natural or Artificial Opening Endoscopic (ICD-10-PCS; CPT 45378; principal; 2025-03-16 13:00)
DX: Z12.11 Encounter for screening for malignant neoplasm of colon (principal); K57.30 Diverticulosis of large intestine without perforation or abscess without bleeding; Z86.0100 Personal history of colon polyps, unspecified; Z87.891 Personal history of nicotine dependence; E66.9 Obesity, unspecified; Z68.32 Body mass index [BMI] 32.0-32.9, adult
CPT/HCPCS: G0105; J2003; J2704; J7120